=== PATIENT | female | born 1950 | race American Indian/Alaskan Native ===

== ENCOUNTER 2017-07-11 07:55 | Day surgery (SDC) | payer MEDICARE, MEDICAID ==
[2017-07-11] MEDS ORDERED: Dexamethasone 4 MG/ML SDV IV ONE (07:56)
[2017-07-11] MEDS ORDERED: Sodium Chloride 0.9% 10 ML Syringe IV ONE (07:56)
[2017-07-11] MEDS ORDERED: Midazolam 1 MG/ML 2 ML SDV IV ONE (07:56)
[2017-07-11] MEDS ORDERED: Cataract Ophth Solution EYELF ONE (08:00)
[2017-07-11] MEDS ORDERED: Phenylephrine 10% Ophth Soln 5 ML Bot EYELF PRN (08:00)
[2017-07-11] MEDS ORDERED: Ondansetron 4 MG/2 ML SDV IVPUSH PRN (08:00)
[2017-07-11] MEDS ORDERED: Povidone-Iodine 5% Sterile Ophth Soln 30 ML Bottle EYELF ONE ×2 (08:00→09:08)
[2017-07-11] MEDS ORDERED: Proparacaine 0.5% Ophth Soln 15 ML Bottle EYELF ONE (08:00)
[2017-07-11] MEDS ORDERED: Acetaminophen 325 MG Tab PO PRN (08:00)
[2017-07-11] MEDS ORDERED: Sodium Chloride 0.9% 10 ML Syringe FLUSH PRN (08:00)
[2017-07-11] MEDS ORDERED: Moxifloxacin 0.5% Ophth Soln 3 ML Bottle EYELF ONE (08:00)
[2017-07-11] MEDS ORDERED: Phenylephrine 10% Ophth Soln 5 ML Bot EYELF ONE (08:00)
[2017-07-11] MEDS ORDERED: Timolol Maleate 0.5% Ophth Soln 5 ML Bottle EYELF ONE (08:00)
[2017-07-11] MEDS ORDERED: Tetracaine HCl/PF 0.5% 4 ML Bottle EYELF ONE (09:08)
[2017-07-11] MEDS ORDERED: Apraclonidine 0.5% Ophth Soln 5 ML Bot EYELF ONE (09:09)
[2017-07-11] MEDS ORDERED: Lidocaine 1% 30 ML SDV ONE (09:09)
[2017-07-11] MEDS ORDERED: Dexamethasone/Neomycin/Polymyxin B Ophth Oint 3.5 GM Tube EYELF ONE (09:09)
[2017-07-11] MEDS ORDERED: Chondroitin Sulfate/Hyaluronate Sodium Ophth Inj 0.75 ML Syringe EYELF ONE (09:10)
[2017-07-11] MEDS ORDERED: Balanced Salt Solution Ophth Irrig 500 ML Bottle IOCULAR ONE (09:10)
[2017-07-11] MEDS ORDERED: Vancomycin 500 MG SDV EYELF ONE (09:10)
--- NOTE | 2017-07-11 10:50 | OR ---
DATE: 07/11/2017 PREOPERATIVE DIAGNOSIS: Visually significant mixed cataract, left eye. POSTOPERATIVE DIAGNOSIS: Visually significant mixed cataract, left eye. PROCEDURE: Extracapsular cataract extraction with intraocular lens implant, left eye. ANESTHESIA: Topical/local MAC. COMPLICATIONS: None. INDICATION: The patient was seen in the clinic with complaints of blurred vision. Examination revealed visually significant mixed nuclear and cortical cataract. She is unhappy with her vision. She has requested cataract surgery. I explained options, offered cataract surgery; and I explained risks including but not limited to infection, retinal detachment, loss of vision, and need for additional surgery amongst others. We discussed implant options. She has requested a mono focal implant. She understands that she may require glasses following surgery. OPERATIVE DESCRIPTION: After informed consent was obtained and the risks, benefits, and alternatives were explained, the patient was brought to the operative suite and topical anesthesia was administered. The patient was then prepped and draped in the sterile fashion, and attention was placed on the left eye. A sterile lid speculum was placed into the left eye to allow operative exposure. A full-thickness paracentesis was made in the temporal portion of the operative eye. Preservative-free lidocaine 0.1 mL was injected into the anterior chamber followed by viscoelastic. A full-thickness corneal incision was then made into the anterior chamber. A bent needle cystotome was used to create a small kira in the anterior capsule. The capsulorrhexis forceps was then used to create a 360-degree curvilinear capsulorrhexis. The nucleus was then removed using a phacoemulsification handpiece, and the remaining cortical material was then removed with irrigation and aspiration handpiece. Following removal of the cortical material, the capsular bag was then inspected and noted to be free of any holes or tears. Viscoelastic was then injected into the capsular bag, and the intraocular lens was inserted into the capsular bag. The viscoelastic material was then removed from both the anterior and posterior chambers and from behind the IOL. The lens and capsular bag were then reinspected. The IOL was well centered and the capsular bag intact. The wound and paracentesis sites were inspected and hydrated with balanced saline solution. Both were found to be self-sealing. The intraocular pressure was assessed digitally and found to be within normal range. A good red reflex was noted at the completion of the procedure. No complications occurred during the operation. At the completion of the procedure, Sarah Crystaln, and Iopidine drops were placed into the operative eye. A sterile eye shield was placed over the operative eye, and the patient was transported to the postoperative recovery area having tolerated the procedure well. Postoperative instructions were given along with a postoperative appointment. The patient was advised to call with any questions or concerns. [facility] /[id number]
== END 2017-07-11 10:08 | disposition home or self-care (01) ==
LOC: DL.SDS 07:55
PROVIDERS: ATTEND Ophthalmology
DX: H25.13 Age-related nuclear cataract, bilateral (principal); H52.4 Presbyopia; H52.223 Regular astigmatism, bilateral; F17.210 Nicotine dependence, cigarettes, uncomplicated; I10 Essential (primary) hypertension; E78.5 Hyperlipidemia, unspecified; E55.9 Vitamin D deficiency, unspecified; J30.2 Other seasonal allergic rhinitis; M17.0 Bilateral primary osteoarthritis of knee; G25.81 Restless legs syndrome; Z79.899 Other long term (current) drug therapy; Z79.82 Long term (current) use of aspirin; Z79.51 Long term (current) use of inhaled steroids; Z88.8 Allergy status to other drugs, medicaments and biological substances
CPT/HCPCS: 00140; 00142; A9270-GY; C1780; J1100; J2250; J3370; J7050

== ENCOUNTER 2017-07-18 08:12 | Day surgery (SDC) | payer MEDICARE, MEDICAID ==
[2017-07-18] MEDS ORDERED: Dexamethasone 4 MG/ML SDV IV ONE (08:13)
[2017-07-18] MEDS ORDERED: Midazolam 1 MG/ML 2 ML SDV IV ONE (08:13)
[2017-07-18] MEDS ORDERED: Sodium Chloride 0.9% 10 ML Syringe IV ONE (08:13)
[2017-07-18] MEDS ORDERED: Dilation Soln 1 EA EACH EYERT ONE (08:30)
[2017-07-18] MEDS ORDERED: Acetaminophen/Codeine 300-30 MG Tab PO PRN (08:30)
[2017-07-18] MEDS ORDERED: Phenylephrine 10% Ophth Soln 5 ML Bot EYERT ONE (08:30)
[2017-07-18] MEDS ORDERED: Ondansetron 4 MG/2 ML SDV IVPUSH PRN (08:30)
[2017-07-18] MEDS ORDERED: Sodium Chloride 0.9% 10 ML Syringe FLUSH PRN (08:30)
[2017-07-18] MEDS ORDERED: Moxifloxacin 0.5% Ophth Soln 3 ML Bottle EYERT ONE (08:30)
[2017-07-18] MEDS ORDERED: Timolol Maleate 0.5% Ophth Soln 5 ML Bottle EYERT ONE (08:30)
[2017-07-18] MEDS ORDERED: Proparacaine 0.5% Ophth Soln 15 ML Bottle EYERT ONE (08:30)
[2017-07-18] MEDS ORDERED: Povidone-Iodine 5% Sterile Ophth Soln 30 ML Bottle EYERT ONE ×2 (08:30→10:14)
[2017-07-18] MEDS ORDERED: Acetaminophen 325 MG Tab PO PRN (08:30)
[2017-07-18] MEDS ORDERED: Tetracaine HCl/PF 0.5% 4 ML Bottle EYERT ONE (10:13)
[2017-07-18] MEDS ORDERED: Lidocaine 1% 30 ML SDV INJECT ONE (10:18)
[2017-07-18] MEDS ORDERED: Vancomycin 500 MG SDV EYERT ONE (10:22)
[2017-07-18] MEDS ORDERED: Balanced Salt Solution Ophth Irrig 500 ML Bottle IOCULAR ONE (10:24)
[2017-07-18] MEDS ORDERED: Chondroitin Sulfate/Hyaluronate Sodium Ophth Inj 0.75 ML Syringe EYERT ONE (10:26)
[2017-07-18] MEDS ORDERED: Dexamethasone 4 MG/ML SDV IOCULAR ONE (10:27)
[2017-07-18] MEDS ORDERED: Dexamethasone/Neomycin/Polymyxin B Ophth Oint 3.5 GM Tube EYERT ONE (10:30)
[2017-07-18] MEDS ORDERED: Apraclonidine 0.5% Ophth Soln 5 ML Bot EYERT ONE (10:30)
--- NOTE | 2017-07-18 10:54 | OR ---
DATE: 07/18/2017 PREOPERATIVE DIAGNOSIS: Visually significant mixed cataract, right eye. POSTOPERATIVE DIAGNOSIS: Visually significant mixed cataract, right eye. PROCEDURE: Extracapsular cataract extraction with intraocular lens implant, right eye. ANESTHESIA: Topical/local MAC. COMPLICATIONS: None. INDICATION: The patient was seen in the clinic with complaints of blurred vision. Clinical examination revealed visually significant cataract. I explained options, I offered cataract surgery, and I explained risks. She is symptomatic and requested surgery to improve vision and function. We discussed implant options, and she has requested a monofocal implant. She voiced an understanding with risks including the potential for infection, retinal detachment, and loss of vision amongst others. OPERATIVE DESCRIPTION: After informed consent was obtained and the risks, benefits, and alternatives were explained, the patient was brought to the operative suite and topical anesthesia was administered. The patient was then prepped and draped in the sterile fashion, and attention was placed on the right eye. A sterile lid speculum was placed into the right eye to allow operative exposure. A full-thickness paracentesis was made in the temporal portion of the operative eye. Preservative-free lidocaine 0.1 mL was injected into the anterior chamber followed by viscoelastic. A full-thickness corneal incision was then made into the anterior chamber. A bent needle cystotome was used to create a small kira in the anterior capsule. The capsulorrhexis forceps was then used to create a 360-degree curvilinear capsulorrhexis. The nucleus was then removed using a phacoemulsification handpiece, and the remaining cortical material was then removed with irrigation and aspiration handpiece. Following removal of the cortical material, the capsular bag was then inspected and noted to be free of any holes or tears. Viscoelastic was then injected into the capsular bag, and the intraocular lens was inserted into the capsular bag. The viscoelastic material was then removed from both the anterior and posterior chambers and from behind the IOL. The lens and capsular bag were then reinspected. The IOL was well centered and the capsular bag intact. The wound and paracentesis sites were inspected and hydrated with balanced saline solution. Both were found to be self-sealing. The intraocular pressure was assessed digitally and found to be within normal range. A good red reflex was noted at the completion of the procedure. No complications occurred during the operation. At the completion of the procedure, Maxitrol, Voltaren, and Iopidine drops were placed into the operative eye. A sterile eye shield was placed over the operative eye, and the patient was transported to the postoperative recovery area having tolerated the procedure well. Postoperative instructions were given along with a postoperative appointment. The patient was advised to call with any questions or concerns. [facility] /[id number]
== END 2017-07-18 11:25 | disposition home or self-care (01) ==
LOC: DL.SDS 08:12
PROVIDERS: ATTEND Ophthalmology
DX: H25.811 Combined forms of age-related cataract, right eye (principal); I10 Essential (primary) hypertension; H25.11 Age-related nuclear cataract, right eye; E78.5 Hyperlipidemia, unspecified; F17.210 Nicotine dependence, cigarettes, uncomplicated; E55.9 Vitamin D deficiency, unspecified; Z79.82 Long term (current) use of aspirin; Z79.899 Other long term (current) drug therapy; Z88.8 Allergy status to other drugs, medicaments and biological substances
CPT/HCPCS: 00142; 66984; A9270; C1780; J1100; J2250; J3370; J7050

== ENCOUNTER 2021-06-15 08:28 | Emergency (ER) | payer MEDICARE, MEDICAID ==
[2021-06-15] MEDS ORDERED: Etomidate 2 MG/ML 20 ML SDV IVPUSH ONE (08:29)
[2021-06-15] MEDS ORDERED: Succinylcholine 200 MG/10 ML MDV IV ONE (08:29)
[2021-06-15] MEDS ORDERED: Propofol 1,000 MG/100 ML SDV IV ONE (08:29)
[2021-06-15] MEDS ORDERED: fentaNYL 100 MCG/2 ML SDV IV ONE (08:29)
[2021-06-15] MEDS ORDERED: Rocuronium 100 MG/10 ML MDV IV ONE (08:29)
[2021-06-15] MEDS ORDERED: Midazolam 1 MG/ML 2 ML SDV IV ONE (08:29)
[2021-06-15] MEDS ORDERED: Labetalol 20 MG/4 ML Syringe IVPUSH ONE (09:08)
[2021-06-15] MEDS ORDERED: Midazolam 1 MG/ML 2 ML SDV ONE (09:33)
[2021-06-15] MEDS ORDERED: fentaNYL 100 MCG/2 ML SDV ONE (09:34)
[2021-06-15 10:00] LABS: PTT,PARTIAL THROMBOPLSTIN TIME 22.1 SEC (22.0-34.0)
[2021-06-15 10:03] LABS: ANION GAP 23.8 mEq/L (7-13); CHLORIDE,CL 100 mmol/L (98-107); SODIUM,NA 140 mmol/L (136-145)
== END 2021-06-15 10:16 ==
LOC: DL.ED 08:28
DX: S06.2X9A Diffuse traumatic brain injury with loss of consciousness of unspecified duration, initial encounter (principal); I48.91 Unspecified atrial fibrillation; D68.9 Coagulation defect, unspecified; E78.00 Pure hypercholesterolemia, unspecified; I10 Essential (primary) hypertension; M19.90 Unspecified osteoarthritis, unspecified site; E66.9 Obesity, unspecified; Z88.0 Allergy status to penicillin; Z88.8 Allergy status to other drugs, medicaments and biological substances; Z68.28 Body mass index [BMI] 28.0-28.9, adult; Z79.82 Long term (current) use of aspirin; Z79.01 Long term (current) use of anticoagulants; Z79.899 Other long term (current) drug therapy; Z20.822 Contact with and (suspected) exposure to COVID-19; W19.XXXA Unspecified fall, initial encounter
CPT/HCPCS: 31500; 36415; 70450; 71045; 72125; 80053; 80307; 82009; 83605; 83735; 83880; 84443; 84484; 85025; 85610; 85730; 86140; 96374; 96375; 99285-25; J0330; J2250; J2704; J3010; J3490; U0002

== ENCOUNTER 2021-06-27 13:06 | Inpatient (IN) | payer MEDICARE, MEDICAID ==
[2021-06-27] MEDS ORDERED: Acetaminophen 325 MG Tab PO PRN (14:43)
[2021-06-27] MEDS ORDERED: Acetaminophen/HYDROcodone 325-5 MG Tab PO PRN (14:43)
[2021-06-27] MEDS ORDERED: Polyethylene Glycol 3350 Powder 17 GM Packet PO PRN (14:45)
[2021-06-27] MEDS ORDERED: Ondansetron 4 MG/2 ML SDV IVPUSH PRN (14:45)
[2021-06-27] MEDS ORDERED: Ondansetron 4 MG Tab.DIS PO PRN (14:45)
[2021-06-27] MEDS ORDERED: Magnesium Hydroxide 400 MG/5 ML Susp 30 ML Cup PO PRN (14:45)
[2021-06-27] MEDS ORDERED: Bisacodyl 5 MG Tab PO PRN (14:45)
[2021-06-27] MEDS ORDERED: Albuterol/Ipratropium 3.0-0.5 MG/3 ML Neb Soln NEB PRN (14:45)
[2021-06-27] MEDS ORDERED: Docusate Sodium 100 MG Cap PO PRN (14:45)
[2021-06-27] MEDS ORDERED: 50% Dextrose in Water 50 ML Syringe IVPUSH PRN (14:52)
[2021-06-27] MEDS ORDERED: Glucagon,Human Recombinant 1 MG Vial IM PRN (14:52)
[2021-06-27] MEDS ORDERED: Albuterol 6.7 GM Inhaler INH PRN (14:53)
[2021-06-27] MEDS ORDERED: Baclofen 10 MG Tab PO PRN (14:53)
[2021-06-27] MEDS ORDERED: traMADol 50 MG Tab PO PRN (14:56)
[2021-06-27] MEDS ORDERED: NICOTINE POLACRILEX 2 MG BC PRN (14:56)
[2021-06-27] MEDS ORDERED: Nicotine 14 MG/24 Hr Patch TRDERM SCH (15:00)
[2021-06-27] MEDS ORDERED: Nicotine 21 MG/24 Hr Patch TRDERM ONE (15:01)
[2021-06-27] MEDS: Insulin Lispro 100 Units/ML 3 ML Vial SUBCUT SCH (17:13)
[2021-06-27] MEDS: LORazepam 0.5 MG Tab PO SCH (20:38)
[2021-06-27] MEDS: Melatonin 3 MG Tab PO SCH (20:38)
[2021-06-27] MEDS: Apixaban 5 MG Tab PO SCH (20:38)
[2021-06-27] MEDS: rOPINIRole 2 MG Tab PO SCH (20:38)
[2021-06-27] MEDS: Nicotine 21 MG/24 Hr Patch TRDERM SCH (20:38)
[2021-06-27] MEDS: Gabapentin 100 MG Cap PO SCH (20:38)
[2021-06-27] MEDS: atorvaSTATin 20 MG Tab PO SCH (20:38)
[2021-06-27] MEDS ORDERED: Calcium Carbonate 500 MG Tab.Chew PO PRN (21:55)
[2021-06-28 06:47] LABS: CHLORIDE,CL 104 mmol/L (98-107); SODIUM,NA 138 mmol/L (136-145)
[2021-06-28] MEDS: Oxybutynin 5 MG Tab.ER PO SCH (08:37)
[2021-06-28] MEDS: DULoxetine 30 MG Cap PO SCH (08:38)
[2021-06-28] MEDS: Gabapentin 100 MG Cap PO SCH ×2 (08:38→21:02)
[2021-06-28] MEDS: LORazepam 0.5 MG Tab PO SCH ×2 (08:39→21:01)
[2021-06-28] MEDS: Aspirin 81 MG Tab.EC PO SCH (08:39)
[2021-06-28] MEDS: Diltiazem 240 MG Cap.ER PO SCH (08:39)
[2021-06-28] MEDS: Losartan 50 MG Tab PO SCH (08:39)
[2021-06-28] MEDS: amLODIPine 5 MG Tab PO SCH (08:39)
[2021-06-28] MEDS: Apixaban 5 MG Tab PO SCH ×2 (08:39→21:01)
[2021-06-28] MEDS: Insulin Lispro 100 Units/ML 3 ML Vial SUBCUT SCH ×3 (08:42→17:20)
[2021-06-28] MEDS: Insulin Glarg,Human.Rec.Analog 100 Unit/ML SUBCUT SCH (08:45)
[2021-06-28] MEDS ORDERED: Check Patch TRDERM SCH (09:00)
[2021-06-28] MEDS: rOPINIRole 2 MG Tab PO SCH (21:01)
[2021-06-28] MEDS: Melatonin 3 MG Tab PO SCH (21:02)
[2021-06-28] MEDS: atorvaSTATin 20 MG Tab PO SCH (21:02)
[2021-06-28] MEDS: Nicotine 21 MG/24 Hr Patch TRDERM SCH (21:03)
[2021-06-29] MEDS: amLODIPine 5 MG Tab PO SCH (09:05)
[2021-06-29] MEDS: Oxybutynin 5 MG Tab.ER PO SCH (09:05)
[2021-06-29] MEDS: Diltiazem 240 MG Cap.ER PO SCH (09:06)
[2021-06-29] MEDS: Apixaban 5 MG Tab PO SCH ×2 (09:06→20:28)
[2021-06-29] MEDS: LORazepam 0.5 MG Tab PO SCH ×2 (09:06→20:29)
[2021-06-29] MEDS: Losartan 50 MG Tab PO SCH (09:06)
[2021-06-29] MEDS: Gabapentin 100 MG Cap PO SCH ×2 (09:07→20:29)
[2021-06-29] MEDS: Aspirin 81 MG Tab.EC PO SCH (09:07)
[2021-06-29] MEDS: DULoxetine 30 MG Cap PO SCH (09:07)
[2021-06-29] MEDS: Insulin Lispro 100 Units/ML 3 ML Vial SUBCUT SCH ×3 (09:10→17:19)
[2021-06-29] MEDS: Insulin Glarg,Human.Rec.Analog 100 Unit/ML SUBCUT SCH (09:11)
[2021-06-29] MEDS: Check NICOTINE Patch TRDERM SCH (09:13)
[2021-06-29] MEDS: ARIPIPRAZOLE 5 MG PO SCH (14:30)
[2021-06-29] MEDS: atorvaSTATin 20 MG Tab PO SCH (20:24)
[2021-06-29] MEDS: Melatonin 3 MG Tab PO SCH (20:28)
[2021-06-29] MEDS: rOPINIRole 2 MG Tab PO SCH (20:29)
[2021-06-29] MEDS: Formoterol/Mometasone 100-5 MCG 8.8 GM Inhaler IH SCH (20:32)
[2021-06-29] MEDS: Nicotine 21 MG/24 Hr Patch TRDERM SCH (20:35)
[2021-06-29] MEDS ORDERED: MIRABEGRON 25 MG PO SCH (21:00)
[2021-06-30] MEDS: Apixaban 5 MG Tab PO SCH (09:32)
[2021-06-30] MEDS: Aspirin 81 MG Tab.EC PO SCH (09:32)
[2021-06-30] MEDS: Diltiazem 240 MG Cap.ER PO SCH (09:32)
[2021-06-30] MEDS: amLODIPine 5 MG Tab PO SCH (09:32)
[2021-06-30] MEDS: Losartan 50 MG Tab PO SCH (09:33)
[2021-06-30] MEDS: DULoxetine 30 MG Cap PO SCH (09:33)
[2021-06-30] MEDS: Oxybutynin 5 MG Tab.ER PO SCH (09:33)
[2021-06-30] MEDS: Gabapentin 100 MG Cap PO SCH (09:33)
[2021-06-30] MEDS: LORazepam 0.5 MG Tab PO SCH (09:34)
[2021-06-30] MEDS: ARIPIPRAZOLE 5 MG PO SCH (09:34)
[2021-06-30] MEDS: Formoterol/Mometasone 100-5 MCG 8.8 GM Inhaler IH SCH (09:35)
[2021-06-30] MEDS: Insulin Lispro 100 Units/ML 3 ML Vial SUBCUT SCH ×2 (09:38→12:37)
[2021-06-30] MEDS: Insulin Glarg,Human.Rec.Analog 100 Unit/ML SUBCUT SCH (09:39)
[2021-06-30] MEDS: Check NICOTINE Patch TRDERM SCH (09:43)
== END 2021-06-30 14:20 | disposition home or self-care (01) | DRG 57 ==
LOC: DL.MS 14:11
PROVIDERS: ADMIT Internal Medicine; ATTEND Internal Medicine
DX: I69.30 Unspecified sequelae of cerebral infarction (principal); D84.9 Immunodeficiency, unspecified; I48.0 Paroxysmal atrial fibrillation; I10 Essential (primary) hypertension; E11.9 Type 2 diabetes mellitus without complications; E78.5 Hyperlipidemia, unspecified; F17.210 Nicotine dependence, cigarettes, uncomplicated; E66.9 Obesity, unspecified; Z68.30 Body mass index [BMI] 30.0-30.9, adult; I07.1 Rheumatic tricuspid insufficiency; I35.8 Other nonrheumatic aortic valve disorders; N32.81 Overactive bladder; M19.90 Unspecified osteoarthritis, unspecified site; E56.9 Vitamin deficiency, unspecified; E78.00 Pure hypercholesterolemia, unspecified; Z98.49 Cataract extraction status, unspecified eye; Z90.89 Acquired absence of other organs; Z20.822 Contact with and (suspected) exposure to COVID-19; Z79.82 Long term (current) use of aspirin; Z79.01 Long term (current) use of anticoagulants; Z79.4 Long term (current) use of insulin; Z79.899 Other long term (current) drug therapy; Z88.1 Allergy status to other antibiotic agents; Z88.8 Allergy status to other drugs, medicaments and biological substances
CPT/HCPCS: 36415; 80053; 80061; 82947; 83735; 85025; 97110-GO; 97116-GP; 97161-GP; 97165-GO; 97530-GO; 97535-GO; A9270-GY; J1815-GY; U0002

== ENCOUNTER 2021-09-01 16:25 | Emergency (ER) | payer MEDICARE, MEDICAID ==
[2021-09-01] MEDS ORDERED: Sodium Chloride 0.9% 10 ML Syringe FLUSH PRN (16:37)
[2021-09-01 17:20] LABS: ANION GAP 12.3 mEq/L (7-13)
== END 2021-09-01 18:00 | disposition home or self-care (01) ==
LOC: DL.ED 16:25
DX: K92.2 Gastrointestinal hemorrhage, unspecified (principal); R60.0 Localized edema; E78.00 Pure hypercholesterolemia, unspecified; E10.9 Type 1 diabetes mellitus without complications; I10 Essential (primary) hypertension; M19.90 Unspecified osteoarthritis, unspecified site; F17.210 Nicotine dependence, cigarettes, uncomplicated; Z88.0 Allergy status to penicillin; Z88.8 Allergy status to other drugs, medicaments and biological substances; Z86.73 Personal history of transient ischemic attack (TIA), and cerebral infarction without residual deficits; Z79.82 Long term (current) use of aspirin; Z79.01 Long term (current) use of anticoagulants; Z79.899 Other long term (current) drug therapy
CPT/HCPCS: 36415; 80053; 83880; 84443; 93005; 99285; J3490

== ENCOUNTER 2021-10-17 06:02 | Day surgery (SDC) | payer MEDICARE, MEDICAID ==
[2021-10-17] MEDS ORDERED: Midazolam 1 MG/ML 2 ML SDV IV ONE (06:03)
[2021-10-17] MEDS ORDERED: fentaNYL 100 MCG/2 ML SDV IV ONE (06:03)
[2021-10-17] MEDS ORDERED: Dextrose 5%-0.45% NaCl 1,000 ML IV SCH (06:30)
== END 2021-10-17 09:15 | disposition home or self-care (01) ==
LOC: DL.ENDO 06:02
PROVIDERS: ATTEND Internal Medicine Gastroenterology
DX: K29.50 Unspecified chronic gastritis without bleeding (principal); B96.81 Helicobacter pylori [H. pylori] as the cause of diseases classified elsewhere; I10 Essential (primary) hypertension; E11.9 Type 2 diabetes mellitus without complications; E78.00 Pure hypercholesterolemia, unspecified; D50.0 Iron deficiency anemia secondary to blood loss (chronic); E66.09 Other obesity due to excess calories; F17.210 Nicotine dependence, cigarettes, uncomplicated; J44.9 Chronic obstructive pulmonary disease, unspecified; I48.91 Unspecified atrial fibrillation; Z98.890 Other specified postprocedural states; Z88.0 Allergy status to penicillin; Z88.8 Allergy status to other drugs, medicaments and biological substances; Z86.73 Personal history of transient ischemic attack (TIA), and cerebral infarction without residual deficits; Z79.51 Long term (current) use of inhaled steroids; Z79.02 Long term (current) use of antithrombotics/antiplatelets; Z79.891 Long term (current) use of opiate analgesic; Z79.899 Other long term (current) drug therapy; Z79.4 Long term (current) use of insulin; Z88.1 Allergy status to other antibiotic agents
CPT/HCPCS: 00731; 43239; 87077; 88305; 88342; J2250; J3010; J7042

== ENCOUNTER 2021-10-27 06:04 | Day surgery (SDC) | payer MEDICARE, MEDICAID ==
[~2021-10-27 06:04] MED LIST: Dextrose 5%-0.45% NaCl 1,000 ML IV SCH; Sodium Chloride 0.9% 10 ML Syringe FLUSH PRN; Sodium Chloride 0.9% 10 ML Syringe FLUSH SCH
[2021-10-27] MEDS ORDERED: fentaNYL 100 MCG/2 ML SDV IV ONE ×3 (06:05→07:10)
[2021-10-27] MEDS ORDERED: Midazolam 1 MG/ML 2 ML SDV IV ONE ×7 (06:05→07:24)
[2021-10-27] MEDS ORDERED: fentaNYL 100 MCG/2 ML SDV ONE (06:15)
[2021-10-27] MEDS ORDERED: Midazolam 1 MG/ML 2 ML SDV ONE (06:15)
== END 2021-10-27 09:25 | disposition home or self-care (01) ==
LOC: DL.ENDO 06:04
PROVIDERS: ATTEND Internal Medicine Gastroenterology
DX: D12.3 Benign neoplasm of transverse colon (principal); D50.9 Iron deficiency anemia, unspecified; K57.30 Diverticulosis of large intestine without perforation or abscess without bleeding; F17.210 Nicotine dependence, cigarettes, uncomplicated; E66.09 Other obesity due to excess calories; E11.9 Type 2 diabetes mellitus without complications; I10 Essential (primary) hypertension; G25.81 Restless legs syndrome; N32.81 Overactive bladder; E78.00 Pure hypercholesterolemia, unspecified; J44.9 Chronic obstructive pulmonary disease, unspecified; I48.91 Unspecified atrial fibrillation; Z86.73 Personal history of transient ischemic attack (TIA), and cerebral infarction without residual deficits; Z88.8 Allergy status to other drugs, medicaments and biological substances; Z68.32 Body mass index [BMI] 32.0-32.9, adult
CPT/HCPCS: 45385; J2250; J3010; J7042; 88305

== ENCOUNTER 2023-05-28 12:49 | Inpatient (IN) | payer MEDICARE, MEDICAID ==
[2023-05-28] MEDS: Iopamidol 755 Mg/ML 100 ML Bottle IVPUSH ONE (13:10)
[2023-05-28 13:24] LABS: BASOPHILS PERCENT AUTO 0.1 % (0.0-1.0); HEMATOCRIT 38.2 % (37.0-47.0); HEMOGLOBIN 12.2 g/dL (12.0-16.0); LYMPHOCYTES PERCENT AUTO 5.5 % (20.5-50.1); MEAN CORPUSCULAR HEMOGLOBIN 31.1 pg (27.0-34.0); MEAN CORPUSCULAR HGB CONC 31.9 g/dL (33.0-35.0); MEAN CORPUSCULAR VOLUME 97.4 fL (80-100); MONOCYTES PERCENT AUTO 7.4 % (2-8); PLATELET COUNT,PLT 311 10^3/uL (150-450); RED BLOOD CELL COUNT 3.92 10^6/uL (4.2-5.4); WHITE BLOOD CELL COUNT,WBC 23.3 10^3/uL (5.0-10.0)
[2023-05-28] MEDS: Sodium Chloride 0.9% 500 ML IV SCH (13:34)
[2023-05-28 13:42] LABS: INR 1.1 (0.9-1.2); PROTHROMBIN TIME 11.8 SEC (9.0-12.0); PTT,PARTIAL THROMBOPLSTIN TIME 29.5 SEC (22.0-34.0)
[2023-05-28 13:50] LABS: LACTIC ACID 2.1 mmol/L (0.4-2.0)
[2023-05-28] MEDS: Sodium Chloride 0.9% 10 ML Syringe FLUSH PRN (13:51)
[2023-05-28 13:52] LABS: ALBUMIN 2.8 g/dL (3.4-5.0); ANION GAP 15.6 mEq/L (7-13); BILIRUBIN TOTAL 0.8 mg/dL (0.2-1.0); BUN/CREATININE RATIO 17.8 (No establ ref range); CREATININE 2.19 mg/dL (0.55-1.02); EST CRCL DRUG DOSING (CG) 20.59 mL/min; POTASSIUM,K 4.6 mmol/L (3.5-5.1); PROTEIN TOTAL,TP 6.1 g/dL (6.4-8.2)
[2023-05-28 13:53] LABS: A/G RATIO 0.85
[2023-05-28] MEDS: Albuterol/Ipratropium 3.0-0.5 MG/3 ML Neb Soln NEB ONE (13:59)
[2023-05-28] MEDS: Sodium Chloride 0.9% 1,000 ML IV ONE ×2 (14:00→15:52)
[2023-05-28 14:03] LABS: BILIRUBIN,URINE NEGATIVE (NEGATIVE); COLOR,URINE YELLOW (YELLOW); GLUCOSE,URINE NEGATIVE (NEGATIVE); KETONES,URINE NEGATIVE (NEGATIVE); LEUKOCYTE ESTERASE,URINE NEGATIVE (NEGATIVE); NITRITE,URINE NEGATIVE (NEGATIVE); OCCULT BLOOD,URINE TRACE-INTACT (NEGATIVE); PH,URINE 6.5 (5.0-9.0); PROTEIN,URINE NEGATIVE (NEGATIVE); UROBILINOGEN,URINE 0.2 mg/dL (0.2-1.0)
[2023-05-28] MEDS: methylPREDNISolone Sodium Succinate 125 MG/2 ML SDV IVPUSH ONE (14:05)
[2023-05-28 14:17] LABS: APPEARANCE,URINE CLOUDY (CLEAR)
[2023-05-28 14:18] LABS: EPITHELIAL CELLS,URINE FEW /HPF (NOT SEEN); RBC,URINE 0-5 /HPF (0-5); WBC,URINE 0-5 /HPF (0-5/HPF)
[2023-05-28 14:19] LABS: BACTERIA,URINE FEW /HPF (0-FEW/HPF); CALCIUM OXALATE CRYSTALS,URINE MODERATE /HPF (NOT SEEN)
[2023-05-28 14:20] LABS: BASE EXCESS ARTERIAL -9 mmol/L ((-2)-(+3)); BICARBONATE,ARTERIAL 16.7 mmol/L (22-26); O2 DELIVERY DEVICE NASAL CANNULA; O2 SATURATION ARTERIAL 92 % (95-100); PCO2 ARTERIAL 36 mmHg (35-45); PH,ARTERIAL 7.29 (7.35-7.45); PO2 ARTERIAL 69 mmHg (70-100)
[2023-05-28 14:22] LABS: ALLEN TEST POSITIVE
[2023-05-28] MEDS: metroNIDAZOLE/Normal Saline 500 MG in Premix Bag 1 BAG IV ONE (14:26)
[2023-05-28] MEDS ORDERED: Sodium Chloride 0.9% 500 ML IV SCH (14:30)
[2023-05-28] MEDS: Cefepime 2 GM Vial IVPUSH ONE (14:41)
[2023-05-28] MEDS ORDERED: Albuterol/Ipratropium 3.0-0.5 MG/3 ML Neb Soln NEB PRN (14:57)
[2023-05-28] MEDS ORDERED: Bisacodyl 5 MG Tab PO PRN (14:57)
[2023-05-28] MEDS ORDERED: Magnesium Hydroxide 400 MG/5 ML Susp 30 ML Cup PO PRN (14:57)
[2023-05-28] MEDS ORDERED: Polyethylene Glycol 3350 Powder 17 GM Packet PO PRN (14:57)
[2023-05-28] MEDS ORDERED: Ondansetron 4 MG/2 ML SDV IVPUSH PRN (14:57)
[2023-05-28 15:13] LABS: CORONAVIRUS COVID-19 NAA NEGATIVE (NEGATIVE); INFLUENZA A NAA NEGATIVE (NEGATIVE); INFLUENZA B NAA NEGATIVE (NEGATIVE); RESPIRATORY SYNCYTIAL VIR NAA NEGATIVE (NEGATIVE)
[2023-05-28] MEDS ORDERED: hydrALAZINE 20 MG/ML SDV IVPUSH PRN (15:13)
[2023-05-28] MEDS ORDERED: guaiFENesin/Dextromethorphan 100-10 MG/5 ML Soln 5 ML Cup PO PRN (15:16)
[2023-05-28] MEDS ORDERED: traMADol 50 MG Tab PO PRN (15:19)
[2023-05-28] MEDS ORDERED: Glucagon,Human Recombinant 1 MG Vial IM PRN (15:25)
[2023-05-28] MEDS ORDERED: 50% Dextrose in Water 50 ML Syringe IVPUSH PRN (15:25)
[2023-05-28 15:42] LABS: HEMOGLOBIN A1C 7.3 % (<5.7)
[2023-05-28] MEDS: Midodrine 5 MG Tab PO STA (17:42)
[2023-05-28] MEDS: Pantoprazole 40 MG Vial IVPUSH ONE (17:43)
[2023-05-28] MEDS: Hydrocortisone Sodium Succinate 100 MG/2 ML SDV IVPUSH SCH (17:43)
[2023-05-28] MEDS: Pantoprazole 40 MG in Sodium Chloride 0.9% 100 ML IV ONE (17:44)
[2023-05-28] MEDS: Azithromycin 500 MG in Sodium Chloride 0.9% 250 ML IV ONE (17:44)
[2023-05-28] MEDS: Insulin Lispro 100 Units/ML 3 ML Vial SUBCUT SCH (20:05)
[2023-05-28] MEDS: metroNIDAZOLE/Normal Saline 500 MG in Premix Bag 1 BAG IV SCH (20:07)
[2023-05-28] MEDS: Midodrine 5 MG Tab PO SCH (23:06)
[2023-05-28] MEDS: Saccharomyces Boulardii (Probiotic) 250 MG Cap PO SCH (23:06)
[2023-05-28] MEDS: guaiFENesin 600 MG Tab.ER PO SCH (23:06)
[2023-05-29] MEDS: Ampicillin/Sulbactam Na 1.5 GM in Sodium Chloride 0.9% 100 ML IV SCH (00:27)
[2023-05-29] MEDS: Dextrose 5%-0.9% NaCl 1,000 ML IV SCH (01:43)
[2023-05-29] MEDS: Pantoprazole 40 MG Tab.CR PO SCH (05:09)
[2023-05-29] MEDS: Acetaminophen 325 MG Tab PO PRN (05:12)
[2023-05-29 06:40] LABS: HEMATOCRIT 34.8 % (37.0-47.0); HEMOGLOBIN 11.2 g/dL (12.0-16.0); MEAN CORPUSCULAR HGB CONC 32.2 g/dL (33.0-35.0); MEAN CORPUSCULAR VOLUME 96.4 fL (80-100); PLATELET COUNT,PLT 291 10^3/uL (150-450); RED BLOOD CELL COUNT 3.61 10^6/uL (4.2-5.4); WHITE BLOOD CELL COUNT,WBC 23.3 10^3/uL (5.0-10.0)
[2023-05-29 06:42] LABS: ALBUMIN 2.6 g/dL (3.4-5.0); ANION GAP 14.4 mEq/L (7-13); BILIRUBIN TOTAL 0.5 mg/dL (0.2-1.0); BUN/CREATININE RATIO 24.8 (No establ ref range); C-REACTIVE PROTEIN 16.12 ng/dL (<=0.50); CALCIUM 8.3 mg/dL (8.5-10.1); CREATININE 1.17 mg/dL (0.55-1.02); EST CRCL DRUG DOSING (CG) 40.87 mL/min; MAGNESIUM 1.8 mg/dL (1.8-2.4); POTASSIUM,K 4.4 mmol/L (3.5-5.1); PROTEIN TOTAL,TP 5.9 g/dL (6.4-8.2)
[2023-05-29 06:49] LABS: A/G RATIO 0.79
[2023-05-29 07:12] LABS: BASOPHILS PERCENT AUTO 0.1 % (0.0-1.0); LYMPHOCYTES PERCENT AUTO 4.9 % (20.5-50.1); MONOCYTES PERCENT AUTO 3.3 % (2-8); NEUTROPHILS PERCENT AUTO 91.7 % (42.2-75.2)
[2023-05-29 07:21] LABS: BAND PERCENT MAN 5 %; LYMPHOCYTES PERCENT MAN 5 % (20-50); MONOCYTES PERCENT MAN 2 % (2-8); SEG NEUTROPHILS PERCENT MAN 88 % (42-75)
[2023-05-29] MEDS: Insulin Glarg,Human.Rec.Analog 100 Unit/ML 10 ML Vial SUBCUT SCH (08:34)
[2023-05-29] MEDS ORDERED: cefTRIAXone 2 GM Vial IVPUSH SCH (09:00)
[2023-05-29] MEDS ORDERED: Azithromycin 500 MG in Sodium Chloride 0.9% 250 ML IV SCH (09:00)
[2023-05-29] MEDS: Acetaminophen/HYDROcodone 325-5 MG Tab PO PRN (11:46)
[2023-05-29] MEDS: Aspirin 81 MG Tab.Chew PO ONE (11:47)
[2023-05-29] MEDS: HYDROmorphone 0.5 MG/0.5 ML Syringe IVPUSH PRN (13:25)
[2023-05-29] MEDS: Gabapentin 400 MG Cap PO SCH (14:02)
[2023-05-29] MEDS: DULoxetine 30 MG Cap PO SCH (20:50)
[2023-05-29] MEDS: Apixaban 5 MG Tab PO SCH (20:51)
[2023-05-29] MEDS: rOPINIRole 2 MG Tab PO SCH (20:51)
[2023-05-29] MEDS: atorvaSTATin 20 MG Tab PO SCH (20:52)
[2023-05-29] MEDS ORDERED: Non-Formulary Medication 1 Each (Atorvastatin [Lipitor] 40 MG Tablet) PO SCH (21:00)
[2023-05-30 06:49] LABS: BASOPHILS PERCENT AUTO 0.2 % (0.0-1.0); HEMATOCRIT 33.2 % (37.0-47.0); HEMOGLOBIN 10.6 g/dL (12.0-16.0); LYMPHOCYTES PERCENT AUTO 5.9 % (20.5-50.1); MEAN CORPUSCULAR HEMOGLOBIN 30.5 pg (27.0-34.0); MEAN CORPUSCULAR HGB CONC 31.9 g/dL (33.0-35.0); MEAN CORPUSCULAR VOLUME 95.7 fL (80-100); MONOCYTES PERCENT AUTO 5.9 % (2-8); PLATELET COUNT,PLT 295 10^3/uL (150-450); RED BLOOD CELL COUNT 3.47 10^6/uL (4.2-5.4); WHITE BLOOD CELL COUNT,WBC 25.6 10^3/uL (5.0-10.0)
[2023-05-30 06:56] LABS: ALBUMIN 2.5 g/dL (3.4-5.0); ANION GAP 10.8 mEq/L (7-13); BILIRUBIN TOTAL 0.4 mg/dL (0.2-1.0); BUN/CREATININE RATIO 26.9 (No establ ref range); C-REACTIVE PROTEIN 8.6 ng/dL (<=0.50); CALCIUM 8.2 mg/dL (8.5-10.1); CREATININE 1.04 mg/dL (0.55-1.02); EST CRCL DRUG DOSING (CG) 45.97 mL/min; MAGNESIUM 1.8 mg/dL (1.8-2.4); POTASSIUM,K 3.8 mmol/L (3.5-5.1); PROTEIN TOTAL,TP 5.8 g/dL (6.4-8.2)
[2023-05-30 06:57] LABS: A/G RATIO 0.76
[2023-05-30] MEDS: Losartan 50 MG Tab PO SCH (08:01)
[2023-05-30] MEDS: Diltiazem 120 MG Cap.CD PO SCH (08:01)
[2023-05-30] MEDS: Aspirin 81 MG Tab.Chew PO SCH (08:02)
[2023-05-30] MEDS: Acetaminophen/HYDROcodone 325-5 MG Tab PO PRN (11:35)
[2023-05-31 06:32] LABS: BASOPHILS PERCENT AUTO 0.2 % (0.0-1.0); EOSINOPHILS PERCENT AUTO 0.7 % (1.0-3.0); HEMATOCRIT 33.6 % (37.0-47.0); LYMPHOCYTES PERCENT AUTO 12.1 % (20.5-50.1); MEAN CORPUSCULAR HEMOGLOBIN 30.7 pg (27.0-34.0); MEAN CORPUSCULAR HGB CONC 32.7 g/dL (33.0-35.0); MEAN CORPUSCULAR VOLUME 93.9 fL (80-100); MONOCYTES PERCENT AUTO 6.3 % (2-8); NEUTROPHILS PERCENT AUTO 80.7 % (42.2-75.2); PLATELET COUNT,PLT 299 10^3/uL (150-450); RED BLOOD CELL COUNT 3.58 10^6/uL (4.2-5.4); WHITE BLOOD CELL COUNT,WBC 17.2 10^3/uL (5.0-10.0)
[2023-05-31 06:43] LABS: ALBUMIN 2.6 g/dL (3.4-5.0); ANION GAP 11.2 mEq/L (7-13); BILIRUBIN TOTAL 0.5 mg/dL (0.2-1.0); BUN/CREATININE RATIO 20.3 (No establ ref range); C-REACTIVE PROTEIN 4.66 ng/dL (<=0.50); CALCIUM 8.1 mg/dL (8.5-10.1); CREATININE 0.79 mg/dL (0.55-1.02); EST CRCL DRUG DOSING (CG) 60.52 mL/min; MAGNESIUM 1.5 mg/dL (1.8-2.4); POTASSIUM,K 3.2 mmol/L (3.5-5.1); PROTEIN TOTAL,TP 5.7 g/dL (6.4-8.2)
[2023-05-31 06:49] LABS: A/G RATIO 0.84
== END 2023-05-31 09:38 | disposition swing bed (61) | DRG 871 ==
LOC: DL.ED 12:49 → DL.MS 14:50
PROVIDERS: ADMIT Internal Medicine; ATTEND Internal Medicine
DX: A41.9 Sepsis, unspecified organism (principal); J18.9 Pneumonia, unspecified organism; J69.0 Pneumonitis due to inhalation of food and vomit; J96.01 Acute respiratory failure with hypoxia; D84.9 Immunodeficiency, unspecified; E87.20 Acidosis, unspecified; N17.9 Acute kidney failure, unspecified; E10.9 Type 1 diabetes mellitus without complications; J44.0 Chronic obstructive pulmonary disease with (acute) lower respiratory infection; F17.200 Nicotine dependence, unspecified, uncomplicated; J44.1 Chronic obstructive pulmonary disease with (acute) exacerbation; I10 Essential (primary) hypertension; E78.5 Hyperlipidemia, unspecified; I48.0 Paroxysmal atrial fibrillation; I35.1 Nonrheumatic aortic (valve) insufficiency; M19.90 Unspecified osteoarthritis, unspecified site; E86.0 Dehydration; E78.00 Pure hypercholesterolemia, unspecified; E66.9 Obesity, unspecified; I95.9 Hypotension, unspecified; R65.20 Severe sepsis without septic shock; E11.65 Type 2 diabetes mellitus with hyperglycemia; K21.9 Gastro-esophageal reflux disease without esophagitis; F41.9 Anxiety disorder, unspecified; G25.81 Restless legs syndrome; F32.A Depression, unspecified; F17.210 Nicotine dependence, cigarettes, uncomplicated; Z88.0 Allergy status to penicillin; Z88.8 Allergy status to other drugs, medicaments and biological substances; Z79.01 Long term (current) use of anticoagulants; Z86.73 Personal history of transient ischemic attack (TIA), and cerebral infarction without residual deficits; Z87.442 Personal history of urinary calculi; Z79.82 Long term (current) use of aspirin; Z79.899 Other long term (current) drug therapy; Z79.4 Long term (current) use of insulin; Z90.49 Acquired absence of other specified parts of digestive tract; Z98.49 Cataract extraction status, unspecified eye; Z68.35 Body mass index [BMI] 35.0-35.9, adult
CPT/HCPCS: 0241U; 36415; 36600; 70450; 70496; 70498; 70551; 71045; 76770; 80053; 80061; 80202; 81001; 82272; 82533; 82803; 82947; 83036; 83605; 83735; 84484; 85025; 85610; 85730; 86140; 87040; 93010; 96361; 96374; 96375; 97161; 97165; 97530; 99285; 99232; 99238; A9270-GY; C1758; C9113; J0295; J0456; J0692; J1170; J1720; J1815-GY; J1836; J2930; J3370; J3490; J7030; J7040; J7042; J7050; J7620-GY; Q9967

== ENCOUNTER 2023-05-31 08:31 | Inpatient (IN) | payer MEDICARE, MEDICAID ==
[2023-05-31] MEDS ORDERED: Albuterol/Ipratropium 3.0-0.5 MG/3 ML Neb Soln NEB PRN (09:41)
[2023-05-31] MEDS ORDERED: Magnesium Hydroxide 400 MG/5 ML Susp 30 ML Cup PO PRN (09:41)
[2023-05-31] MEDS ORDERED: traMADol 50 MG Tab PO PRN (09:41)
[2023-05-31] MEDS ORDERED: Glucagon,Human Recombinant 1 MG Vial IM PRN ×2 (09:41)
[2023-05-31] MEDS ORDERED: Sodium Chloride 0.9% 500 ML IV SCH (09:41)
[2023-05-31] MEDS ORDERED: Polyethylene Glycol 3350 Powder 17 GM Packet PO PRN (09:41)
[2023-05-31] MEDS ORDERED: Ondansetron 4 MG/2 ML SDV IVPUSH PRN (09:41)
[2023-05-31] MEDS ORDERED: guaiFENesin/Dextromethorphan 100-10 MG/5 ML Soln 5 ML Cup PO PRN (09:41)
[2023-05-31] MEDS ORDERED: Bisacodyl 5 MG Tab PO PRN (09:41)
[2023-05-31] MEDS ORDERED: Acetaminophen 325 MG Tab PO PRN (09:41)
[2023-05-31] MEDS ORDERED: 50% Dextrose in Water 50 ML Syringe IVPUSH PRN (09:41)
[2023-05-31] MEDS ORDERED: Sodium Chloride 0.9% 10 ML Syringe FLUSH PRN (09:41)
[2023-05-31] MEDS: Acetaminophen/HYDROcodone 325-5 MG Tab PO PRN (11:45)
[2023-05-31] MEDS: Ampicillin/Sulbactam Na 1.5 GM in Sodium Chloride 0.9% 100 ML IV SCH (11:46)
[2023-05-31] MEDS: Insulin Lispro 100 Units/ML 3 ML Vial SUBCUT SCH (12:01)
[2023-05-31] MEDS: Insulin Glarg,Human.Rec.Analog 100 Unit/ML 10 ML Vial SUBCUT SCH (12:03)
[2023-05-31] MEDS: Gabapentin 400 MG Cap PO SCH (13:46)
[2023-05-31] MEDS: Pantoprazole 40 MG Tab.CR PO SCH (17:02)
[2023-05-31] MEDS: Saccharomyces Boulardii (Probiotic) 250 MG Cap PO SCH (21:17)
[2023-05-31] MEDS: rOPINIRole 2 MG Tab PO SCH (21:19)
[2023-05-31] MEDS: atorvaSTATin 20 MG Tab PO SCH (21:19)
[2023-05-31] MEDS: guaiFENesin 600 MG Tab.ER PO SCH (21:19)
[2023-05-31] MEDS: Apixaban 5 MG Tab PO SCH (21:19)
[2023-05-31] MEDS: DULoxetine 30 MG Cap PO SCH (21:19)
[2023-05-31] MEDS: Sodium Chloride 0.9% 10 ML Syringe FLUSH SCH (21:32)
[2023-05-31] MEDS: Sodium Chloride 0.9% 10 ML Syringe FLUSH PRN (23:35)
[2023-05-31] MEDS: hydrALAZINE 20 MG/ML SDV IVPUSH PRN (23:50)
[2023-06-01 06:46] LABS: BASOPHILS PERCENT AUTO 0.1 % (0.0-1.0); EOSINOPHILS PERCENT AUTO 1.4 % (1.0-3.0); HEMATOCRIT 37.3 % (37.0-47.0); HEMOGLOBIN 12.4 g/dL (12.0-16.0); LYMPHOCYTES PERCENT AUTO 14.1 % (20.5-50.1); MEAN CORPUSCULAR HEMOGLOBIN 31.1 pg (27.0-34.0); MEAN CORPUSCULAR HGB CONC 33.2 g/dL (33.0-35.0); MEAN CORPUSCULAR VOLUME 93.5 fL (80-100); MONOCYTES PERCENT AUTO 9.2 % (2-8); NEUTROPHILS PERCENT AUTO 75.2 % (42.2-75.2); PLATELET COUNT,PLT 303 10^3/uL (150-450); RED BLOOD CELL COUNT 3.99 10^6/uL (4.2-5.4); WHITE BLOOD CELL COUNT,WBC 15.3 10^3/uL (5.0-10.0)
[2023-06-01 07:08] LABS: ALANINE AMINOTRANSFERASE,ALT 23 U/L (14-59); ALBUMIN 2.6 g/dL (3.4-5.0); ALKALINE PHOSPHATASE 72 U/L (46-116); ANION GAP 12.3 mEq/L (7-13); ASPARTATE AMNIOTRANSFERASE,AST 16 U/L (15-37); BILIRUBIN TOTAL 0.5 mg/dL (0.2-1.0); BLOOD UREA NITROGEN,BUN 12 mg/dL (7-18); BUN/CREATININE RATIO 16.2 (No establ ref range); C-REACTIVE PROTEIN 3.87 ng/dL (<=0.50); CALCIUM 8.3 mg/dL (8.5-10.1); CARBON DIOXIDE,CO2 27 mmol/L (21-32); CHLORIDE,CL 107 mmol/L (98-107); CREATININE 0.74 mg/dL (0.55-1.02); GLUCOSE RANDOM 99 mg/dL (70-99); MAGNESIUM 1.5 mg/dL (1.8-2.4); POTASSIUM,K 3.3 mmol/L (3.5-5.1); PROTEIN TOTAL,TP 5.9 g/dL (6.4-8.2); SODIUM,NA 143 mmol/L (136-145)
[2023-06-01 07:09] LABS: A/G RATIO 0.79; ESTIMATED GFR 85 mL/min (>=60)
[2023-06-01] MEDS: Diltiazem 120 MG Cap.CD PO SCH (08:44)
[2023-06-01] MEDS: Aspirin 81 MG Tab.Chew PO SCH (08:44)
[2023-06-01] MEDS: Losartan 50 MG Tab PO SCH (08:47)
[2023-06-01] MEDS: Acetaminophen/HYDROcodone 325-5 MG Tab PO PRN (21:35)
[2023-06-02 06:43] LABS: CREATININE 0.73 mg/dL (0.55-1.02); VANCOMYCIN RANDOM 20.7 ug/mL (No Normal Range)
[2023-06-02 06:45] LABS: ESTIMATED GFR 87 mL/min (>=60)
[2023-06-02] MEDS: Insulin Glarg,Human.Rec.Analog 100 Unit/ML 10 ML Vial SUBCUT SCH (09:51)
[2023-06-02] MEDS: Furosemide 20 MG Tab PO SCH (09:52)
[2023-06-02] MEDS: BREO INH SCH (09:52)
[2023-06-02] MEDS: Nicotine 21 MG/24 Hr Patch TRDERM ONE (17:26)
[2023-06-02] MEDS: amLODIPine 5 MG Tab PO SCH (21:48)
[2023-06-03] MEDS: Nicotine 21 MG/24 Hr Patch TRDERM SCH (08:57)
[2023-06-05 06:32] LABS: BASOPHILS PERCENT AUTO 0.3 % (0.0-1.0); EOSINOPHILS PERCENT AUTO 2.2 % (1.0-3.0); HEMATOCRIT 33.9 % (37.0-47.0); HEMOGLOBIN 10.6 g/dL (12.0-16.0); LYMPHOCYTES PERCENT AUTO 16.6 % (20.5-50.1); MEAN CORPUSCULAR HGB CONC 31.3 g/dL (33.0-35.0); MONOCYTES PERCENT AUTO 8.5 % (2-8); NEUTROPHILS PERCENT AUTO 72.4 % (42.2-75.2); PLATELET COUNT,PLT 363 10^3/uL (150-450); RED BLOOD CELL COUNT 3.53 10^6/uL (4.2-5.4); WHITE BLOOD CELL COUNT,WBC 12.8 10^3/uL (5.0-10.0)
[2023-06-05 06:57] LABS: A/G RATIO 0.71; ALBUMIN 2.5 g/dL (3.4-5.0); BILIRUBIN TOTAL 0.3 mg/dL (0.2-1.0); BUN/CREATININE RATIO 22.9 (No establ ref range); CALCIUM 8.5 mg/dL (8.5-10.1); CREATININE 0.7 mg/dL (0.55-1.02); EST CRCL DRUG DOSING (CG) 65.71 mL/min; MAGNESIUM 1.8 mg/dL (1.8-2.4)
== END 2023-06-07 12:50 | disposition home health service (06) | DRG 948 ==
LOC: DL.MS 09:27
PROVIDERS: ADMIT Internal Medicine; ATTEND Family Medicine Adult Medicine
DX: R53.81 Other malaise (principal); I10 Essential (primary) hypertension; I48.0 Paroxysmal atrial fibrillation; K29.50 Unspecified chronic gastritis without bleeding; J44.9 Chronic obstructive pulmonary disease, unspecified; F17.200 Nicotine dependence, unspecified, uncomplicated; M19.90 Unspecified osteoarthritis, unspecified site; G25.81 Restless legs syndrome; E66.9 Obesity, unspecified; E78.00 Pure hypercholesterolemia, unspecified; K21.9 Gastro-esophageal reflux disease without esophagitis; F41.9 Anxiety disorder, unspecified; F32.A Depression, unspecified; R53.1 Weakness; E11.65 Type 2 diabetes mellitus with hyperglycemia; Z86.73 Personal history of transient ischemic attack (TIA), and cerebral infarction without residual deficits; Z79.01 Long term (current) use of anticoagulants; Z87.442 Personal history of urinary calculi; Z68.33 Body mass index [BMI] 33.0-33.9, adult; Z79.899 Other long term (current) drug therapy; Z79.82 Long term (current) use of aspirin; Z79.51 Long term (current) use of inhaled steroids; Z79.4 Long term (current) use of insulin; Z98.49 Cataract extraction status, unspecified eye; Z90.89 Acquired absence of other organs
CPT/HCPCS: 36415; 71045; 80053; 80202; 82565; 82947; 83735; 85025; 86140; 97110-GO; 97110-GP; 97116-GP; 97161-GP; 97165-GO; 97530-GO; 99305; 99315; A9270-GY; J0295; J0360; J3370; J3490; J7050

== ENCOUNTER 2024-02-23 10:35 | Inpatient (IN) | payer MEDICARE, MEDICAID ==
[2024-02-23 10:58] LABS: BASOPHILS PERCENT AUTO 0.1 % (0.0-1.0); HEMOGLOBIN 10.4 g/dL (12.0-16.0); LYMPHOCYTES PERCENT AUTO 4.2 % (20.5-50.1); MEAN CORPUSCULAR HEMOGLOBIN 28.7 pg (27.0-34.0); MEAN CORPUSCULAR HGB CONC 31.5 g/dL (33.0-35.0); MEAN CORPUSCULAR VOLUME 90.9 fL (80-100); MONOCYTES PERCENT AUTO 7.5 % (2-8); NEUTROPHILS PERCENT AUTO 88.2 % (42.2-75.2); PLATELET COUNT,PLT 378 10^3/uL (150-450); RED BLOOD CELL COUNT 3.63 10^6/uL (4.2-5.4); WHITE BLOOD CELL COUNT,WBC 22.5 10^3/uL (5.0-10.0)
[2024-02-23] MEDS: Azithromycin 500 MG in Sodium Chloride 0.9% 250 ML IV ONE (11:14)
[2024-02-23] MEDS: Sodium Chloride 0.9% 1,000 ML IV ONE (11:14)
[2024-02-23] MEDS: cefTRIAXone 2 GM Vial IVPUSH ONE (11:14)
[2024-02-23 11:18] LABS: ALANINE AMINOTRANSFERASE,ALT 14 U/L (14-59); ALBUMIN 2.7 g/dL (3.4-5.0); ALKALINE PHOSPHATASE 117 U/L (46-116); ANION GAP 15.4 mEq/L (7-13); ASPARTATE AMNIOTRANSFERASE,AST 15 U/L (15-37); BILIRUBIN TOTAL 0.6 mg/dL (0.2-1.0); BLOOD UREA NITROGEN,BUN 17 mg/dL (7-18); CALCIUM 8.9 mg/dL (8.5-10.1); CARBON DIOXIDE,CO2 25 mmol/L (21-32); CHLORIDE,CL 102 mmol/L (98-107); GLUCOSE RANDOM 184 mg/dL (70-99); POTASSIUM,K 4.4 mmol/L (3.5-5.1); PROTEIN TOTAL,TP 6.8 g/dL (6.4-8.2); SODIUM,NA 138 mmol/L (136-145)
[2024-02-23 11:21] LABS: A/G RATIO 0.66; C-REACTIVE PROTEIN > 25.00 ng/dL (<=0.50); ESTIMATED GFR 59 mL/min (>=60); LACTIC ACID 1.5 mmol/L (0.4-2.0)
[2024-02-23] MEDS: Albuterol 0.083% 2.5 MG/3 ML Neb Soln NEB ONE (12:19)
[2024-02-23] MEDS ORDERED: Docusate Sodium 100 MG Cap PO PRN (12:41)
[2024-02-23] MEDS ORDERED: Albuterol/Ipratropium 3.0-0.5 MG/3 ML Neb Soln NEB PRN (12:41)
[2024-02-23] MEDS ORDERED: Ondansetron 4 MG/2 ML SDV IVPUSH PRN (12:41)
[2024-02-23] MEDS ORDERED: Acetaminophen 325 MG Tab PO PRN (12:41)
[2024-02-23] MEDS: Enoxaparin 40 MG/0.4 ML Syringe SUBCUT SCH (13:35)
[2024-02-23] MEDS: Albuterol/Ipratropium 3.0-0.5 MG/3 ML Neb Soln NEB SCH (13:35)
[2024-02-23] MEDS: Acetaminophen/HYDROcodone 325-10 MG Tab PO SCH (13:39)
[2024-02-23] MEDS ORDERED: Albuterol 6.7 GM Inhaler INH PRN (15:33)
[2024-02-23] MEDS ORDERED: Non-Formulary Medication 1 Each (Umeclidinium Bromide [Incruse Ellipta*] 62.5 MCG Blst.W.D INH SCH (15:45)
[2024-02-23] MEDS: Acetaminophen/HYDROcodone 325-5 MG Tab PO SCH (16:46)
[2024-02-23] MEDS: Furosemide 20 MG Tab PO SCH (16:46)
[2024-02-23] MEDS: Potassium Chloride 10 MEQ Tab.ER PO SCH (16:51)
[2024-02-23] MEDS: Pantoprazole 40 MG Tab.CR PO SCH (16:51)
[2024-02-23] MEDS: Diltiazem 240 MG Cap.ER PO SCH (16:51)
[2024-02-23] MEDS: Oxybutynin 5 MG Tab.ER PO SCH (16:51)
[2024-02-23] MEDS: rOPINIRole 2 MG Tab PO SCH (20:19)
[2024-02-23] MEDS: DULoxetine 30 MG Cap PO SCH (20:19)
[2024-02-23] MEDS: atorvaSTATin 20 MG Tab PO SCH (20:19)
[2024-02-23] MEDS: Gabapentin 400 MG Cap PO SCH (20:19)
[2024-02-23] MEDS ORDERED: Non-Formulary Medication 1 Each (Aripiprazole [Abilify] 5 MG Tablet) PO SCH (21:00)
[2024-02-23] MEDS ORDERED: Non-Formulary Medication 1 Each (Mirabegron [Myrbetriq] 25 MG Tab.Er) PO SCH (21:00)
[2024-02-23] MEDS: Apixaban 5 MG Tab PO SCH (21:36)
[2024-02-23] MEDS: QUEtiapine 25 MG Tab PO SCH (21:36)
[2024-02-23] MEDS: Oxybutynin 5 MG Tab PO SCH (21:36)
[2024-02-23] MEDS: Nicotine 21 MG/24 Hr Patch TRDERM SCH (21:36)
[2024-02-24] MEDS: Tiotropium Bromide 4 GM Inhalation Spray (2.5mcg/1 dose; 10 doses) INH SCH (05:17)
[2024-02-24 06:40] LABS: BASOPHILS PERCENT AUTO 0.2 % (0.0-1.0); EOSINOPHILS PERCENT AUTO 1.5 % (1.0-3.0); HEMATOCRIT 30.3 % (37.0-47.0); HEMOGLOBIN 9.3 g/dL (12.0-16.0); LYMPHOCYTES PERCENT AUTO 16.6 % (20.5-50.1); MEAN CORPUSCULAR HEMOGLOBIN 28.8 pg (27.0-34.0); MEAN CORPUSCULAR HGB CONC 30.7 g/dL (33.0-35.0); MEAN CORPUSCULAR VOLUME 93.8 fL (80-100); MONOCYTES PERCENT AUTO 8.8 % (2-8); NEUTROPHILS PERCENT AUTO 72.9 % (42.2-75.2); PLATELET COUNT,PLT 352 10^3/uL (150-450); RED BLOOD CELL COUNT 3.23 10^6/uL (4.2-5.4); WHITE BLOOD CELL COUNT,WBC 15.1 10^3/uL (5.0-10.0)
[2024-02-24 06:58] LABS: ALBUMIN 2.3 g/dL (3.4-5.0); BILIRUBIN TOTAL 0.3 mg/dL (0.2-1.0); BUN/CREATININE RATIO 19.5 (No establ ref range); CALCIUM 8.6 mg/dL (8.5-10.1); CREATININE 1.13 mg/dL (0.55-1.02); EST CRCL DRUG DOSING (CG) 42.47 mL/min
[2024-02-24 06:59] LABS: A/G RATIO 0.62
[2024-02-24] MEDS: Losartan 50 MG Tab PO SCH (08:36)
[2024-02-24] MEDS: metFORMIN 500 MG Tab PO SCH (08:37)
[2024-02-24] MEDS: Azithromycin 500 MG in Sodium Chloride 0.9% 250 ML IV SCH (08:38)
[2024-02-24] MEDS: Glimepiride 2 MG Tab PO SCH (08:38)
[2024-02-24] MEDS: cefTRIAXone 1 GM Vial IV SCH (08:39)
[2024-02-24] MEDS: Azithromycin 500 MG Vial ONE (14:22)
[2024-02-24] MEDS ORDERED: 50% Dextrose in Water 50 ML Syringe IVPUSH PRN (21:43)
[2024-02-25 05:47] LABS: HEMATOCRIT 30.4 % (37.0-47.0); HEMOGLOBIN 9.3 g/dL (12.0-16.0); MEAN CORPUSCULAR HEMOGLOBIN 28.6 pg (27.0-34.0); MEAN CORPUSCULAR HGB CONC 30.6 g/dL (33.0-35.0); MEAN CORPUSCULAR VOLUME 93.5 fL (80-100); PLATELET COUNT,PLT 381 10^3/uL (150-450); RED BLOOD CELL COUNT 3.25 10^6/uL (4.2-5.4); WHITE BLOOD CELL COUNT,WBC 14.2 10^3/uL (5.0-10.0)
[2024-02-25 05:54] LABS: BASOPHILS PERCENT AUTO 0.1 % (0.0-1.0); EOSINOPHILS PERCENT AUTO 2.9 % (1.0-3.0); LYMPHOCYTES PERCENT AUTO 17.6 % (20.5-50.1); MONOCYTES PERCENT AUTO 10.5 % (2-8); NEUTROPHILS PERCENT AUTO 68.9 % (42.2-75.2)
[2024-02-25 06:30] LABS: ALBUMIN 2.2 g/dL (3.4-5.0); ANION GAP 13.8 mEq/L (7-13); BILIRUBIN TOTAL 0.2 mg/dL (0.2-1.0); BUN/CREATININE RATIO 23.6 (No establ ref range); CALCIUM 8.8 mg/dL (8.5-10.1); CREATININE 1.1 mg/dL (0.55-1.02); EST CRCL DRUG DOSING (CG) 43.63 mL/min; POTASSIUM,K 4.8 mmol/L (3.5-5.1); PROTEIN TOTAL,TP 5.8 g/dL (6.4-8.2)
[2024-02-25 06:31] LABS: BAND PERCENT MAN 1 %; EOSINOPHILS PERCENT MAN 2 % (1-3); LYMPHOCYTES % ATYPICAL MANUAL 3 %; LYMPHOCYTES PERCENT MAN 16 % (20-50); MONOCYTES PERCENT MAN 7 % (2-8); SEG NEUTROPHILS PERCENT MAN 71 % (42-75)
[2024-02-25 06:32] LABS: A/G RATIO 0.61
[2024-02-26] MEDS: methylPREDNISolone Sodium Succinate 40 MG/1 ML SDV IVPUSH SCH (01:06)
[2024-02-26 06:34] LABS: HEMATOCRIT 31.3 % (37.0-47.0); HEMOGLOBIN 9.5 g/dL (12.0-16.0); MEAN CORPUSCULAR HEMOGLOBIN 28.5 pg (27.0-34.0); MEAN CORPUSCULAR HGB CONC 30.4 g/dL (33.0-35.0); RED BLOOD CELL COUNT 3.33 10^6/uL (4.2-5.4); WHITE BLOOD CELL COUNT,WBC 11.3 10^3/uL (5.0-10.0)
[2024-02-26 06:50] LABS: ANION GAP 12.9 mEq/L (7-13); CREATININE 0.95 mg/dL (0.55-1.02); EST CRCL DRUG DOSING (CG) 50.52 mL/min; POTASSIUM,K 5.9 mmol/L (3.5-5.1)
[2024-02-26] MEDS: Azithromycin 500 MG Vial ONE (09:21)
[2024-02-26 09:43] LABS: ANION GAP 15.1 mEq/L (7-13); CALCIUM 9.1 mg/dL (8.5-10.1); CREATININE 1.1 mg/dL (0.55-1.02); EST CRCL DRUG DOSING (CG) 43.63 mL/min; POTASSIUM,K 6.1 mmol/L (3.5-5.1)
[2024-02-26] MEDS ORDERED: 50% Dextrose in Water 50 ML Syringe IVPUSH PRN ×4 (09:49→16:04)
[2024-02-26] MEDS ORDERED: Glucagon,Human Recombinant 1 MG Vial IM PRN ×4 (09:49→16:04)
[2024-02-26] MEDS: Insulin Glarg,Human.Rec.Analog 100 Unit/ML 10 ML Vial SUBCUT ONE (10:48)
[2024-02-26] MEDS: Insulin Lispro 100 Units/ML 3 ML Vial SUBCUT ONE (10:49)
[2024-02-26] MEDS: Insulin Lispro 100 Units/ML 3 ML Vial SUBCUT STA (13:30)
[2024-02-26] MEDS: Sodium Polystyrene Sulfonate 15 GM/60 ML Susp 60 ML Bot PO STA (13:30)
[2024-02-26] MEDS: Sodium Zirconium Cyclosilicate 5 GM Packet PO ONE (13:31)
[2024-02-26] MEDS: Calcium Gluconate 10% 1 GM/10 ML SDV IVPUSH ONE (13:31)
[2024-02-26] MEDS: Sodium Chloride 0.9% 10 ML Syringe FLUSH PRN (19:52)
[2024-02-26] MEDS: QUEtiapine 25 MG Tab PO SCH (22:24)
[2024-02-26] MEDS: Insulin Glarg,Human.Rec.Analog 100 Unit/ML 10 ML Vial SUBCUT SCH (22:28)
[2024-02-27 06:57] LABS: ANION GAP 17.1 mEq/L (7-13); CALCIUM 9.5 mg/dL (8.5-10.1); POTASSIUM,K 4.1 mmol/L (3.5-5.1)
[2024-02-27] MEDS: Furosemide 20 MG/2 ML VIAL IVPUSH ONE (10:56)
[2024-02-27] MEDS: Iopamidol 612 MG/ML 100 ML Bottle IVPUSH ONE (18:29)
[2024-02-27] MEDS ORDERED: 50% Dextrose in Water 50 ML Syringe IVPUSH PRN ×2 (19:53→19:54)
[2024-02-27] MEDS ORDERED: Glucagon,Human Recombinant 1 MG Vial IM PRN ×2 (19:53→19:54)
[2024-02-27] MEDS: Insulin Glarg,Human.Rec.Analog 100 Unit/ML 10 ML Vial SUBCUT SCH (20:20)
[2024-02-28 06:09] LABS: ANION GAP 11.5 mEq/L (7-13); CALCIUM 8.9 mg/dL (8.5-10.1); CREATININE 0.88 mg/dL (0.55-1.02); EST CRCL DRUG DOSING (CG) 54.54 mL/min; POTASSIUM,K 3.5 mmol/L (3.5-5.1)
[2024-02-28] MEDS: Insulin Lispro 100 Units/ML 3 ML Vial SUBCUT SCH (09:05)
[2024-02-28 09:32] LABS: HEMATOCRIT 30.9 % (37.0-47.0); HEMOGLOBIN 9.5 g/dL (12.0-16.0); MEAN CORPUSCULAR HGB CONC 30.7 g/dL (33.0-35.0); MEAN CORPUSCULAR VOLUME 91.2 fL (80-100); RED BLOOD CELL COUNT 3.39 10^6/uL (4.2-5.4); WHITE BLOOD CELL COUNT,WBC 19.1 10^3/uL (5.0-10.0)
[2024-02-28] MEDS: Azithromycin 250 MG Tab PO ONE (10:15)
== END 2024-02-28 11:25 | disposition home health service (06) | DRG 193 ==
LOC: DL.ED 10:35 → DL.MS 11:26
PROVIDERS: ADMIT Internal Medicine; ATTEND Internal Medicine
DX: A41.9 Sepsis, unspecified organism (principal); J18.9 Pneumonia, unspecified organism; J96.01 Acute respiratory failure with hypoxia; J44.0 Chronic obstructive pulmonary disease with (acute) lower respiratory infection; D84.9 Immunodeficiency, unspecified; I48.91 Unspecified atrial fibrillation; I10 Essential (primary) hypertension; H26.9 Unspecified cataract; E78.00 Pure hypercholesterolemia, unspecified; K21.9 Gastro-esophageal reflux disease without esophagitis; F15.90 Other stimulant use, unspecified, uncomplicated; M19.90 Unspecified osteoarthritis, unspecified site; F41.9 Anxiety disorder, unspecified; F32.A Depression, unspecified; E10.9 Type 1 diabetes mellitus without complications; E66.9 Obesity, unspecified; F17.210 Nicotine dependence, cigarettes, uncomplicated; Z79.01 Long term (current) use of anticoagulants; Z88.8 Allergy status to other drugs, medicaments and biological substances; Z79.4 Long term (current) use of insulin; Z79.1 Long term (current) use of non-steroidal anti-inflammatories (NSAID); Z79.82 Long term (current) use of aspirin; Z79.51 Long term (current) use of inhaled steroids; Z79.02 Long term (current) use of antithrombotics/antiplatelets; Z79.899 Other long term (current) drug therapy; Z98.49 Cataract extraction status, unspecified eye; Z90.89 Acquired absence of other organs; Z98.890 Other specified postprocedural states
CPT/HCPCS: 36415; 80053; 83605; 85025; 86140; 87040 ×2; 96374; 96375; 99285; J0456; J0696; J7030; J7050; 71045; 71270; 80048; 82947; 85027; 87070; 87205; 94640; 97161-GP; 97165-GO; 97530-GO; 99223; 99232; 99233; 99239; A9270-GY; J0612; J1650; J1815-GY; J1940; J2919; J3490; J7613-GY; J7620-GY; Q9967

== ENCOUNTER 2024-03-06 15:28 | Inpatient (IN) | payer MEDICARE, MEDICAID ==
[2024-03-06] MEDS ORDERED: Sodium Chloride 0.9% 10 ML Syringe FLUSH PRN (16:13)
[2024-03-06] MEDS ORDERED: Glucagon,Human Recombinant 1 MG Vial IM PRN ×2 (16:13)
[2024-03-06] MEDS ORDERED: Albuterol 6.7 GM Inhaler INH PRN (16:13)
[2024-03-06] MEDS ORDERED: Acetaminophen 325 MG Tab PO PRN (16:13)
[2024-03-06] MEDS ORDERED: oxyCODONE 5 MG Tab PO PRN (16:13)
[2024-03-06] MEDS ORDERED: Ipratropium 0.02% 0.5 MG/2.5 ML Neb Soln INH PRN (16:13)
[2024-03-06] MEDS ORDERED: 50% Dextrose in Water 50 ML Syringe IVPUSH PRN (16:13)
[2024-03-06] MEDS: Acetaminophen/HYDROcodone 325-5 MG Tab PO SCH (16:30)
[2024-03-06] MEDS: methylPREDNISolone Sodium Succinate 40 MG/1 ML SDV IVPUSH SCH (17:30)
[2024-03-06] MEDS: Insulin Lispro 100 Units/ML 3 ML Vial SUBCUT SCH (17:30)
[2024-03-06] MEDS: Piperacillin/Tazobactam 4.5 GM in Sodium Chloride 0.9% 100 ML IV SCH (18:00)
[2024-03-06] MEDS: VANCOmycin 1.25 GM in Sodium Chloride 0.9% 250 ML IV SCH (18:00)
[2024-03-06] MEDS: Albuterol/Ipratropium 3.0-0.5 MG/3 ML Neb Soln NEB SCH (18:00)
[2024-03-06] MEDS: atorvaSTATin 20 MG Tab PO SCH (22:30)
[2024-03-06] MEDS: DULoxetine 30 MG Cap PO SCH (22:30)
[2024-03-06] MEDS: MIRABEGRON 50 MG PO SCH (22:30)
[2024-03-06] MEDS: ARIPIPRAZOLE 5 MG PO SCH (22:30)
[2024-03-06] MEDS: Apixaban 5 MG Tab PO SCH (22:30)
[2024-03-06] MEDS: rOPINIRole 2 MG Tab PO SCH (22:30)
[2024-03-06] MEDS: metFORMIN 500 MG Tab PO SCH (22:30)
[2024-03-06] MEDS: Gabapentin 300 MG Cap PO SCH (23:30)
[2024-03-07] MEDS: Loperamide 2 MG Cap PO PRN (01:54)
[2024-03-07 06:50] LABS: ANION GAP 10.1 mEq/L (7-13); C-REACTIVE PROTEIN 0.51 ng/dL (<=0.50); CALCIUM 8.2 mg/dL (8.5-10.1); CREATININE 0.91 mg/dL (0.55-1.02); EST CRCL DRUG DOSING (CG) 52.74 mL/min; POTASSIUM,K 3.1 mmol/L (3.5-5.1)
[2024-03-07] MEDS: Diltiazem 240 MG Cap.ER PO SCH (08:29)
[2024-03-07] MEDS: Oxybutynin 5 MG Tab.ER PO SCH (08:30)
[2024-03-07] MEDS: Losartan 50 MG Tab PO SCH (08:30)
[2024-03-07] MEDS: Glimepiride 2 MG Tab PO SCH (08:31)
[2024-03-07] MEDS: Nicotine 14 MG/24 Hr Patch TRDERM SCH (08:31)
[2024-03-07] MEDS: Pantoprazole 40 MG Tab.CR PO SCH (08:31)
[2024-03-07] MEDS: Furosemide 20 MG/2 ML VIAL IVPUSH SCH (08:33)
[2024-03-07] MEDS: Fluconazole 100 MG Tab PO ONE (11:48)
[2024-03-07] MEDS: guaiFENesin 600 MG Tab.ER PO SCH (14:53)
[2024-03-07] MEDS: Empagliflozin 10 MG Tab PO SCH (19:32)
[2024-03-07] MEDS: Piperacillin/Tazobactam 4.5 GM in Sodium Chloride 0.9% 100 ML IV SCH (20:25)
[2024-03-07] MEDS: Dexamethasone 4 MG Tab PO SCH (20:26)
[2024-03-07] MEDS: guaiFENesin/Dextromethorphan 100-10 MG/5 ML Soln 5 ML Cup PO PRN (21:58)
[2024-03-07] MEDS: Benzonatate 100 MG Cap PO PRN (21:59)
[2024-03-08] MEDS: diphenhydrAMINE 50 MG/ML SDV IVPUSH ONE (03:35)
[2024-03-08 06:03] LABS: HEMATOCRIT 30.8 % (37.0-47.0); HEMOGLOBIN 9.7 g/dL (12.0-16.0); MEAN CORPUSCULAR HEMOGLOBIN 28.2 pg (27.0-34.0); MEAN CORPUSCULAR HGB CONC 31.5 g/dL (33.0-35.0); MEAN CORPUSCULAR VOLUME 89.5 fL (80-100); PLATELET COUNT,PLT 382 10^3/uL (150-450); RED BLOOD CELL COUNT 3.44 10^6/uL (4.2-5.4)
[2024-03-08 06:08] LABS: BASOPHILS PERCENT AUTO 0.1 % (0.0-1.0); LYMPHOCYTES PERCENT AUTO 4.4 % (20.5-50.1); MONOCYTES PERCENT AUTO 7.1 % (2-8); NEUTROPHILS PERCENT AUTO 88.4 % (42.2-75.2)
[2024-03-08 06:28] LABS: ANION GAP 11.5 mEq/L (7-13); CALCIUM 8.5 mg/dL (8.5-10.1); CREATININE 0.95 mg/dL (0.55-1.02); EST CRCL DRUG DOSING (CG) 50.52 mL/min; POTASSIUM,K 3.5 mmol/L (3.5-5.1); VANCOMYCIN RANDOM 16.2 ug/mL (No Normal Range)
[2024-03-08 06:31] LABS: BAND PERCENT MAN 2 %; LYMPHOCYTES PERCENT MAN 4 % (20-50); MONOCYTES PERCENT MAN 3 % (2-8); SEG NEUTROPHILS PERCENT MAN 91 % (42-75)
[2024-03-08] MEDS: Albuterol/Ipratropium 3.0-0.5 MG/3 ML Neb Soln NEB SCH (06:42)
[2024-03-08] MEDS: Formoterol/Mometasone 200-5 MCG 8.8 GM Inhaler INH SCH (06:45)
[2024-03-08] MEDS: Tiotropium Bromide 4 GM Inhalation Spray (2.5mcg/1 dose; 10 doses) INH SCH (06:46)
[2024-03-08] MEDS: Fluconazole 100 MG Tab PO SCH (08:29)
[2024-03-08] MEDS: Dexamethasone 4 MG Tab PO SCH (08:31)
[2024-03-08] MEDS: Dextrose 5% in Water 1,000 ML IV SCH (13:11)
[2024-03-08] MEDS: Montelukast 10 MG Tab PO SCH (20:27)
[2024-03-08] MEDS: Loratadine 10 MG Tab PO SCH (20:28)
[2024-03-09 06:30] LABS: HEMATOCRIT 30.7 % (37.0-47.0); HEMOGLOBIN 9.5 g/dL (12.0-16.0); MEAN CORPUSCULAR HEMOGLOBIN 27.8 pg (27.0-34.0); MEAN CORPUSCULAR HGB CONC 30.9 g/dL (33.0-35.0); MEAN CORPUSCULAR VOLUME 89.8 fL (80-100); PLATELET COUNT,PLT 371 10^3/uL (150-450); RED BLOOD CELL COUNT 3.42 10^6/uL (4.2-5.4); WHITE BLOOD CELL COUNT,WBC 12.8 10^3/uL (5.0-10.0)
[2024-03-09 06:31] LABS: ANION GAP 11.3 mEq/L (7-13); CALCIUM 8.3 mg/dL (8.5-10.1); POTASSIUM,K 3.3 mmol/L (3.5-5.1)
[2024-03-09 06:41] LABS: BASOPHILS PERCENT AUTO 0.2 % (0.0-1.0); LYMPHOCYTES PERCENT AUTO 5.5 % (20.5-50.1); MONOCYTES PERCENT AUTO 7.8 % (2-8); NEUTROPHILS PERCENT AUTO 86.5 % (42.2-75.2)
[2024-03-09 06:42] LABS: BAND PERCENT MAN 2 %; LYMPHOCYTES PERCENT MAN 8 % (20-50); MONOCYTES PERCENT MAN 5 % (2-8); SEG NEUTROPHILS PERCENT MAN 85 % (42-75)
[2024-03-09] MEDS: Potassium Chloride 10 MEQ Tab.ER PO ONE (10:14)
[2024-03-10 06:19] LABS: BASOPHILS PERCENT AUTO 0.1 % (0.0-1.0); EOSINOPHILS PERCENT AUTO 0.1 % (1.0-3.0); HEMATOCRIT 29.1 % (37.0-47.0); HEMOGLOBIN 9.1 g/dL (12.0-16.0); LYMPHOCYTES PERCENT AUTO 4.9 % (20.5-50.1); MEAN CORPUSCULAR HEMOGLOBIN 28.1 pg (27.0-34.0); MEAN CORPUSCULAR HGB CONC 31.3 g/dL (33.0-35.0); MEAN CORPUSCULAR VOLUME 89.8 fL (80-100); MONOCYTES PERCENT AUTO 4.7 % (2-8); NEUTROPHILS PERCENT AUTO 90.2 % (42.2-75.2); PLATELET COUNT,PLT 356 10^3/uL (150-450); RED BLOOD CELL COUNT 3.24 10^6/uL (4.2-5.4); WHITE BLOOD CELL COUNT,WBC 15.1 10^3/uL (5.0-10.0)
[2024-03-10 06:46] LABS: ALBUMIN 2.7 g/dL (3.4-5.0); ANION GAP 14.3 mEq/L (7-13); BILIRUBIN TOTAL 0.7 mg/dL (0.2-1.0); BUN/CREATININE RATIO 26.2 (No establ ref range); CALCIUM 8.6 mg/dL (8.5-10.1); CREATININE 0.84 mg/dL (0.55-1.02); EST CRCL DRUG DOSING (CG) 57.14 mL/min; MAGNESIUM 1.8 mg/dL (1.8-2.4); POTASSIUM,K 4.3 mmol/L (3.5-5.1); PROTEIN TOTAL,TP 5.5 g/dL (6.4-8.2)
[2024-03-10 06:49] LABS: A/G RATIO 0.96
[2024-03-10] MEDS: Dexamethasone 2 MG Tab PO SCH (09:16)
[2024-03-10 17:54] LABS: INR 1.1 (0.9-1.2); PROTHROMBIN TIME 11.5 SEC (9.0-12.0); PTT,PARTIAL THROMBOPLSTIN TIME 21.9 SEC (22.0-34.0)
[2024-03-11] MEDS: Albuterol/Ipratropium 3.0-0.5 MG/3 ML Neb Soln NEB PRN (13:06)
[2024-03-11] MEDS: Sodium Chloride 0.9% 10 ML Syringe FLUSH PRN (13:27)
[2024-03-11] MEDS: Melatonin 3 MG Tab PO PRN (20:36)
[2024-03-12] MEDS: Ampicillin/Sulbactam Na 1.5 GM in Sodium Chloride 0.9% 100 ML IV SCH (00:50)
[2024-03-12] MEDS: Furosemide 20 MG/2 ML VIAL IVPUSH ONE (17:25)
[2024-03-12] MEDS: Apixaban 5 MG Tab PO SCH (21:11)
[2024-03-13] MEDS: Furosemide 20 MG/2 ML VIAL IVPUSH ONE (12:31)
== END 2024-03-14 10:40 | disposition home or self-care (01) | DRG 947 ==
LOC: DL.MS 16:00
PROVIDERS: ADMIT Internal Medicine; ATTEND Internal Medicine
DX: R53.1 Weakness (principal); J18.9 Pneumonia, unspecified organism; E87.0 Hyperosmolality and hypernatremia; E78.00 Pure hypercholesterolemia, unspecified; I10 Essential (primary) hypertension; J44.9 Chronic obstructive pulmonary disease, unspecified; K21.9 Gastro-esophageal reflux disease without esophagitis; M19.90 Unspecified osteoarthritis, unspecified site; F41.8 Other specified anxiety disorders; D64.9 Anemia, unspecified; E61.1 Iron deficiency; F15.90 Other stimulant use, unspecified, uncomplicated; I35.1 Nonrheumatic aortic (valve) insufficiency; E87.6 Hypokalemia; K29.50 Unspecified chronic gastritis without bleeding; E11.9 Type 2 diabetes mellitus without complications; E55.9 Vitamin D deficiency, unspecified; I48.0 Paroxysmal atrial fibrillation; E66.811 Obesity, class 1; G25.81 Restless legs syndrome; G25.5 Other chorea; Z68.30 Body mass index [BMI] 30.0-30.9, adult; Z72.0 Tobacco use; Z90.49 Acquired absence of other specified parts of digestive tract; Z79.899 Other long term (current) drug therapy; Z98.890 Other specified postprocedural states; Z86.73 Personal history of transient ischemic attack (TIA), and cerebral infarction without residual deficits; Z79.01 Long term (current) use of anticoagulants
CPT/HCPCS: 36415; 80048; 80053; 80202; 82947; 83735; 85025; 85610; 85730; 86140; 93971; 94640; 94664; 94667; 94668; 97161-GP; 97165-GO; 97530-GO; 97530-GP; 99306; 99309; 99315; A9270-GY; J0295; J1200; J1940; J2543; J2919; J3371; J3490; J7060; J7620-GY; J8540

== ENCOUNTER 2024-10-26 15:45 | Emergency (ER) | payer MEDICARE, MEDICAID ==
[2024-10-26 16:19] LABS: BASOPHILS PERCENT AUTO 0.2 % (0.0-1.0); EOSINOPHILS PERCENT AUTO 0.1 % (1.0-3.0); LYMPHOCYTES PERCENT AUTO 8.4 % (20.5-50.1); MONOCYTES PERCENT AUTO 9.9 % (2-8); NEUTROPHILS PERCENT AUTO 81.4 % (42.2-75.2); PLATELET COUNT,PLT 278 10^3/uL (150-450); RED BLOOD CELL COUNT 2.79 10^6/uL (4.2-5.4); WHITE BLOOD CELL COUNT,WBC 13.8 10^3/uL (5.0-10.0)
[2024-10-26 16:32] LABS: B-TYPE NATRIURETIC PEPTIDE,BNP 36.0 pg/ml (0-100)
[2024-10-26 16:38] LABS: ALANINE AMINOTRANSFERASE,ALT 9.0 U/L (14-59); ASPARTATE AMNIOTRANSFERASE,AST 9.0 U/L (15-37); BILIRUBIN TOTAL 0.3 mg/dL (0.2-1.0); BLOOD UREA NITROGEN,BUN 10.0 mg/dL (7-18); CARBON DIOXIDE,CO2 22.0 mmol/L (21-32); CREATININE 0.78 mg/dL (0.55-1.02); EST CRCL DRUG DOSING (CG) 58.34 mL/min; GLUCOSE RANDOM 128.0 mg/dL (70-99); PROTEIN TOTAL,TP 4.7 g/dL (6.4-8.2)
[2024-10-26 16:43] LABS: CHLORIDE,CL 115.0 mmol/L (98-107); POTASSIUM,K 3.0 mmol/L (3.5-5.1); SODIUM,NA 146.0 mmol/L (136-145)
[2024-10-26 16:44] LABS: A/G RATIO 0.88; ESTIMATED GFR 79.0 mL/min (>=60)
[2024-10-26] MEDS: Take Home: Doxycycline 100 MG Cap, 4 Cap Pack PO ONE (17:06)
== END 2024-10-26 17:13 | disposition home or self-care (01) ==
LOC: DL.ED 15:45
DX: J45.909 Unspecified asthma, uncomplicated (principal); J20.9 Acute bronchitis, unspecified; I48.91 Unspecified atrial fibrillation; E78.00 Pure hypercholesterolemia, unspecified; I10 Essential (primary) hypertension; K21.9 Gastro-esophageal reflux disease without esophagitis; I25.2 Old myocardial infarction; E10.9 Type 1 diabetes mellitus without complications; Z79.899 Other long term (current) drug therapy; Z86.73 Personal history of transient ischemic attack (TIA), and cerebral infarction without residual deficits; Z88.1 Allergy status to other antibiotic agents; Z88.0 Allergy status to penicillin; Z88.8 Allergy status to other drugs, medicaments and biological substances; Z79.51 Long term (current) use of inhaled steroids; Z79.84 Long term (current) use of oral hypoglycemic drugs; Z79.01 Long term (current) use of anticoagulants
CPT/HCPCS: 36415; 71045; 80053; 83880; 85025; 93005; 94640; 99285; A9270; J7512

== ENCOUNTER 2024-12-19 19:51 | Emergency (ER) | payer MEDICARE, MEDICAID ==
[2024-12-19] MEDS ORDERED: Sodium Chloride 0.9% 10 ML Syringe FLUSH PRN (19:57)
[2024-12-19 20:20] LABS: BASOPHILS PERCENT AUTO 0.3 % (0.0-1.0); EOSINOPHILS PERCENT AUTO 2.8 % (1.0-3.0); LYMPHOCYTES PERCENT AUTO 21.6 % (20.5-50.1); MONOCYTES PERCENT AUTO 8.1 % (2-8); NEUTROPHILS PERCENT AUTO 67.2 % (42.2-75.2); PLATELET COUNT,PLT 393 10^3/uL (150-450); RED BLOOD CELL COUNT 3.99 10^6/uL (4.2-5.4); WHITE BLOOD CELL COUNT,WBC 14.1 10^3/uL (5.0-10.0)
[2024-12-19 20:37] LABS: INR 1.0 (0.9-1.2); PTT,PARTIAL THROMBOPLSTIN TIME 27.2 SEC (22.0-34.0)
[2024-12-19 20:41] LABS: ALANINE AMINOTRANSFERASE,ALT 16 U/L (14-59); ASPARTATE AMNIOTRANSFERASE,AST 8 U/L (15-37); BILIRUBIN TOTAL 0.2 mg/dL (0.2-1.0); BLOOD UREA NITROGEN,BUN 17 mg/dL (7-18); CARBON DIOXIDE,CO2 28 mmol/L (21-32); CHLORIDE,CL 104 mmol/L (98-107); CREATININE 1.06 mg/dL (0.55-1.02); GLUCOSE RANDOM 197 mg/dL (70-99); POTASSIUM,K 4.0 mmol/L (3.5-5.1); PROTEIN TOTAL,TP 6.5 g/dL (6.4-8.2); SODIUM,NA 143 mmol/L (136-145)
[2024-12-19 20:42] LABS: A/G RATIO 1.03; ESTIMATED GFR 55 mL/min (>=60)
[2024-12-19] MEDS: Aspirin 325 MG Tab.EC PO ONE (21:05)
== END 2024-12-20 00:29 ==
LOC: DL.ED 19:51
DX: G45.9 Transient cerebral ischemic attack, unspecified (principal); I10 Essential (primary) hypertension; I48.91 Unspecified atrial fibrillation; E10.9 Type 1 diabetes mellitus without complications; J44.9 Chronic obstructive pulmonary disease, unspecified; K21.9 Gastro-esophageal reflux disease without esophagitis; F17.200 Nicotine dependence, unspecified, uncomplicated; M19.90 Unspecified osteoarthritis, unspecified site; Z79.01 Long term (current) use of anticoagulants; Z88.0 Allergy status to penicillin; Z88.8 Allergy status to other drugs, medicaments and biological substances; Z88.1 Allergy status to other antibiotic agents; Z88.2 Allergy status to sulfonamides; Z79.899 Other long term (current) drug therapy
CPT/HCPCS: 36415; 70450; 70496; 70498; 80053; 82947; 84484; 85025; 85610; 85730; 93005; 93010; 99285; A9270

== ENCOUNTER 2024-12-30 13:48 | Inpatient (IN) | payer MEDICARE, MEDICAID ==
[2024-12-30] MEDS ORDERED: Sodium Chloride 0.9% 10 ML Syringe FLUSH PRN (14:01)
[2024-12-30 14:15] LABS: BASOPHILS PERCENT AUTO 0.2 % (0.0-1.0); EOSINOPHILS PERCENT AUTO 0.3 % (1.0-3.0); LYMPHOCYTES PERCENT AUTO 8.5 % (20.5-50.1); MONOCYTES PERCENT AUTO 11.0 % (2-8); NEUTROPHILS PERCENT AUTO 80.0 % (42.2-75.2); PLATELET COUNT,PLT 458 10^3/uL (150-450); RED BLOOD CELL COUNT 3.76 10^6/uL (4.2-5.4); WHITE BLOOD CELL COUNT,WBC 18.1 10^3/uL (5.0-10.0)
[2024-12-30 14:28] LABS: INR 1.1 (0.9-1.2)
[2024-12-30 14:36] LABS: A/G RATIO 0.94; ALANINE AMINOTRANSFERASE,ALT 13.0 U/L (14-59); ASPARTATE AMNIOTRANSFERASE,AST 12.0 U/L (15-37); BILIRUBIN TOTAL 0.4 mg/dL (0.2-1.0); BLOOD UREA NITROGEN,BUN 23.0 mg/dL (7-18); CARBON DIOXIDE,CO2 24.0 mmol/L (21-32); CHLORIDE,CL 106.0 mmol/L (98-107); CREATININE 1.06 mg/dL (0.55-1.02); EST CRCL DRUG DOSING (CG) 44.59 mL/min; ESTIMATED GFR 55.0 mL/min (>=60); GLUCOSE RANDOM 230.0 mg/dL (70-99); POTASSIUM,K 4.0 mmol/L (3.5-5.1); PROTEIN TOTAL,TP 6.8 g/dL (6.4-8.2); SODIUM,NA 142.0 mmol/L (136-145)
[2024-12-30] MEDS: Iopamidol 755 Mg/ML 100 ML Bottle IVPUSH ONE (15:41)
[2024-12-30 16:38] LABS: APPEARANCE,URINE CLEAR (CLEAR); GLUCOSE,URINE 500 (NEGATIVE); OCCULT BLOOD,URINE MODERATE (NEGATIVE)
[2024-12-30 16:48] LABS: SQUAMOUS EPITHELIAL CELLS,UR FEW /HPF (NOT SEEN)
[2024-12-30 17:07] LABS: LACTIC ACID 1.4 mmol/L (0.4-2.0)
[2024-12-30] MEDS ORDERED: Lactated Ringers 500 ML IV ONE (17:55)
[2024-12-30] MEDS ORDERED: 50% Dextrose in Water 50 ML Syringe IVPUSH PRN (18:08)
[2024-12-30] MEDS ORDERED: Ipratropium 0.02% 0.5 MG/2.5 ML Neb Soln INH SCH (18:24)
[2024-12-30] MEDS: methylPREDNISolone Sodium Succinate 40 MG/1 ML SDV IVPUSH SCH (18:45)
[2024-12-30] MEDS: Lactated Ringers 500 ML IV ONE (18:56)
[2024-12-30] MEDS: VANCOmycin 1.75 GM/350 ML 1.75 GM in Premix Bag 1 BAG IV ONE (18:58)
[2024-12-30 19:07] LABS: FOLIC ACID 12.2 ng/mL (8.6-58.9); GAMMA GLUTAMYL TRANSFERASE,GGT 18.0 U/L (5-55)
[2024-12-30 20:06] LABS: IRON,FE 8.0 ug/dL (50-170); PERCENT FE SATURATION 3.0 % (20.0-50.0)
[2024-12-30] MEDS: Fluticasone NASAL Spray 16 GM Bottle NASBOTH SCH (21:36)
[2024-12-30] MEDS: Insulin Glarg,Human.Rec.Analog 100 Unit/ML 10 ML Vial SUBCUT SCH (21:38)
[2024-12-31] MEDS: Formoterol/Mometasone 200-5 MCG 8.8 GM Inhaler INH SCH (06:17)
[2024-12-31 06:21] LABS: BASOPHILS PERCENT AUTO 0.1 % (0.0-1.0); EOSINOPHILS PERCENT AUTO 0.0 % (1.0-3.0); LYMPHOCYTES PERCENT AUTO 4.4 % (20.5-50.1); MONOCYTES PERCENT AUTO 2.9 % (2-8); NEUTROPHILS PERCENT AUTO 92.6 % (42.2-75.2); PLATELET COUNT,PLT 424 10^3/uL (150-450); RED BLOOD CELL COUNT 3.66 10^6/uL (4.2-5.4); WHITE BLOOD CELL COUNT,WBC 18.4 10^3/uL (5.0-10.0)
[2024-12-31 06:39] LABS: INR 1.0 (0.9-1.2)
[2024-12-31 06:47] LABS: BLOOD UREA NITROGEN,BUN 18.0 mg/dL (7-18); CARBON DIOXIDE,CO2 24.0 mmol/L (21-32); CHLORIDE,CL 109.0 mmol/L (98-107); CREATININE 0.87 mg/dL (0.55-1.02); EST CRCL DRUG DOSING (CG) 54.33 mL/min; ESTIMATED GFR 69.0 mL/min (>=60); GLUCOSE RANDOM 253.0 mg/dL (70-99); PHOSPHORUS 4.3 mg/dL (2.6-4.7); POTASSIUM,K 4.3 mmol/L (3.5-5.1); SODIUM,NA 146.0 mmol/L (136-145)
[2024-12-31] MEDS: Oxybutynin 5 MG Tab.ER PO SCH (08:47)
[2024-12-31] MEDS: Diltiazem 240 MG Cap.ER PO SCH (08:48)
[2024-12-31] MEDS: Potassium Chloride 10 MEQ Tab.ER PO SCH (08:48)
[2024-12-31] MEDS: Sodium Chloride 0.9% 10 ML Syringe FLUSH PRN (08:55)
[2024-12-31] MEDS: REMOVE NICOTINE TRDERM SCH (09:03)
[2024-12-31] MEDS: methylPREDNISolone Sodium Succinate 40 MG/1 ML SDV IVPUSH SCH (12:43)
[2024-12-31] MEDS: VANCOmycin 1.5 GM/300 ML 1.5 GM in Premix Bag 1 BAG IV SCH (19:28)
[2025-01-01 06:20] LABS: PLATELET COUNT,PLT 484 10^3/uL (150-450); RED BLOOD CELL COUNT 3.38 10^6/uL (4.2-5.4); WHITE BLOOD CELL COUNT,WBC 24.0 10^3/uL (5.0-10.0)
[2025-01-01 06:22] LABS: BASOPHILS PERCENT AUTO 0.2 % (0.0-1.0); EOSINOPHILS PERCENT AUTO 0.0 % (1.0-3.0); LYMPHOCYTES PERCENT AUTO 3.5 % (20.5-50.1); MONOCYTES PERCENT AUTO 4.8 % (2-8); NEUTROPHILS PERCENT AUTO 91.5 % (42.2-75.2)
[2025-01-01 06:41] LABS: BLOOD UREA NITROGEN,BUN 24.0 mg/dL (7-18); CARBON DIOXIDE,CO2 22.0 mmol/L (21-32); CHLORIDE,CL 110.0 mmol/L (98-107); CREATININE 1.06 mg/dL (0.55-1.02); EST CRCL DRUG DOSING (CG) 44.59 mL/min; GLUCOSE RANDOM 266.0 mg/dL (70-99); POTASSIUM,K 3.6 mmol/L (3.5-5.1); SODIUM,NA 145.0 mmol/L (136-145)
[2025-01-01 06:48] LABS: BAND PERCENT MAN 3 %; ESTIMATED GFR 55.0 mL/min (>=60); LYMPHOCYTES PERCENT MAN 4 % (20-50); MONOCYTES PERCENT MAN 3 % (2-8); SEG NEUTROPHILS PERCENT MAN 90 % (42-75)
[2025-01-01] MEDS: Acetaminophen/HYDROcodone 325-5 MG Tab PO PRN (10:08)
[2025-01-01] MEDS: Insulin Glarg,Human.Rec.Analog 100 Unit/ML 10 ML Vial SUBCUT SCH (22:26)
[2025-01-02 08:42] LABS: PLATELET COUNT,PLT 484 10^3/uL (150-450); RED BLOOD CELL COUNT 3.49 10^6/uL (4.2-5.4); WHITE BLOOD CELL COUNT,WBC 18.6 10^3/uL (5.0-10.0)
[2025-01-02 08:48] LABS: BASOPHILS PERCENT AUTO 0.2 % (0.0-1.0); EOSINOPHILS PERCENT AUTO 0.1 % (1.0-3.0); LYMPHOCYTES PERCENT AUTO 6.8 % (20.5-50.1); MONOCYTES PERCENT AUTO 7.7 % (2-8); NEUTROPHILS PERCENT AUTO 85.2 % (42.2-75.2)
[2025-01-02 08:58] LABS: BLOOD UREA NITROGEN,BUN 25.0 mg/dL (7-18); CARBON DIOXIDE,CO2 22.0 mmol/L (21-32); CHLORIDE,CL 109.0 mmol/L (98-107); CREATININE 1.0 mg/dL (0.55-1.02); EST CRCL DRUG DOSING (CG) 47.27 mL/min; ESTIMATED GFR 59.0 mL/min (>=60); GLUCOSE RANDOM 369.0 mg/dL (70-99); POTASSIUM,K 4.1 mmol/L (3.5-5.1); SODIUM,NA 142.0 mmol/L (136-145)
[2025-01-02 09:06] LABS: LYMPHOCYTES PERCENT MAN 9 % (20-50); SEG NEUTROPHILS PERCENT MAN 85 % (42-75)
[2025-01-02 09:07] LABS: MONOCYTES PERCENT MAN 6 % (2-8)
[2025-01-02 22:46] LABS: IONIZED CA@PH7.4 1.17 mmol/L (1.09-1.30); IONIZED CALCIUM 1.16 mmol/L (1.09-1.30)
== END 2025-01-02 13:00 | disposition home health service (06) | DRG 871 ==
LOC: DL.ED 13:48 → DL.MS 16:23
PROVIDERS: ADMIT Internal Medicine; ATTEND Internal Medicine
PROC: 3E03329 Introduction of Other Anti-infective into Peripheral Vein, Percutaneous Approach (ICD-10-PCS; principal; 2024-12-30)
PROC: 3E0333Z Introduction of Anti-inflammatory into Peripheral Vein, Percutaneous Approach (ICD-10-PCS; 2024-12-30)
DX: A41.9 Sepsis, unspecified organism (principal); J18.9 Pneumonia, unspecified organism; J96.01 Acute respiratory failure with hypoxia; J44.0 Chronic obstructive pulmonary disease with (acute) lower respiratory infection; J44.9 Chronic obstructive pulmonary disease, unspecified; J44.1 Chronic obstructive pulmonary disease with (acute) exacerbation; I69.354 Hemiplegia and hemiparesis following cerebral infarction affecting left non-dominant side; E10.9 Type 1 diabetes mellitus without complications; R65.20 Severe sepsis without septic shock; I48.91 Unspecified atrial fibrillation; F17.210 Nicotine dependence, cigarettes, uncomplicated; H26.9 Unspecified cataract; E78.00 Pure hypercholesterolemia, unspecified; I10 Essential (primary) hypertension; K21.9 Gastro-esophageal reflux disease without esophagitis; F41.9 Anxiety disorder, unspecified; F32.A Depression, unspecified; E66.9 Obesity, unspecified; F43.9 Reaction to severe stress, unspecified; D64.9 Anemia, unspecified; D69.6 Thrombocytopenia, unspecified; E11.65 Type 2 diabetes mellitus with hyperglycemia; E83.51 Hypocalcemia; R79.89 Other specified abnormal findings of blood chemistry; M19.90 Unspecified osteoarthritis, unspecified site; N32.81 Overactive bladder; G25.81 Restless legs syndrome; R32 Unspecified urinary incontinence; R13.10 Dysphagia, unspecified; I69.392 Facial weakness following cerebral infarction; Z68.31 Body mass index [BMI] 31.0-31.9, adult; Z88.1 Allergy status to other antibiotic agents; Z88.0 Allergy status to penicillin; Z88.8 Allergy status to other drugs, medicaments and biological substances; Z79.51 Long term (current) use of inhaled steroids; Z79.899 Other long term (current) drug therapy; Z79.82 Long term (current) use of aspirin; Z79.4 Long term (current) use of insulin; Z98.49 Cataract extraction status, unspecified eye; Z90.89 Acquired absence of other organs; Z98.890 Other specified postprocedural states; Z79.01 Long term (current) use of anticoagulants; Z71.6 Tobacco abuse counseling
CPT/HCPCS: 36415; 70450; 70496; 70498; 71045; 71250; 80053; 82607; 82746; 82977; 84484; 85025; 85610; 87040 ×2; 93005; 93010; 94762; 99284; 99285; Q9967; 80048; 80202; 81001; 82272; 82330; 82947; 83540; 83550; 83605; 83735; 84100; 87070; 87077; 87081; 87205; 87428-QW; 94640; 94664; 97161-GP; 97165-GO; 97530-GO; 97530-GP; 99223; 99232; 99233; 99239; A9270-GY; J0456; J0692; J0696; J1815-GY; J2919; J3375; J7030; J7050; J7120; J7512

== ENCOUNTER 2025-01-25 15:27 | Emergency (ER) | payer MEDICARE, MEDICAID ==
[2025-01-25 16:12] LABS: BASOPHILS PERCENT AUTO 0.3 % (0.0-1.0); EOSINOPHILS PERCENT AUTO 0.5 % (1.0-3.0); LYMPHOCYTES PERCENT AUTO 5.4 % (20.5-50.1); MONOCYTES PERCENT AUTO 7.2 % (2-8); NEUTROPHILS PERCENT AUTO 86.6 % (42.2-75.2); PLATELET COUNT,PLT 368 10^3/uL (150-450); RED BLOOD CELL COUNT 3.45 10^6/uL (4.2-5.4); WHITE BLOOD CELL COUNT,WBC 12.7 10^3/uL (5.0-10.0)
[2025-01-25 16:36] LABS: LACTIC ACID 1.0 mmol/L (0.4-2.0)
[2025-01-25 16:37] LABS: ALANINE AMINOTRANSFERASE,ALT 19.0 U/L (14-59); ASPARTATE AMNIOTRANSFERASE,AST 34.0 U/L (15-37); BILIRUBIN TOTAL 0.6 mg/dL (0.2-1.0); BLOOD UREA NITROGEN,BUN 35.0 mg/dL (7-18); CARBON DIOXIDE,CO2 26.0 mmol/L (21-32); CHLORIDE,CL 100.0 mmol/L (98-107); CREATININE 1.51 mg/dL (0.55-1.02); EST CRCL DRUG DOSING (CG) 28.97 mL/min; GLUCOSE RANDOM 233.0 mg/dL (70-99); POTASSIUM,K 3.8 mmol/L (3.5-5.1); PROTEIN TOTAL,TP 6.2 g/dL (6.4-8.2); SODIUM,NA 135.0 mmol/L (136-145)
[2025-01-25 16:45] LABS: A/G RATIO 0.94; ESTIMATED GFR 36.0 mL/min (>=60)
== END 2025-01-25 18:10 ==
LOC: DL.ED 15:27
DX: J15.9 Unspecified bacterial pneumonia (principal); I10 Essential (primary) hypertension; E11.9 Type 2 diabetes mellitus without complications; E78.00 Pure hypercholesterolemia, unspecified; I48.91 Unspecified atrial fibrillation; K21.9 Gastro-esophageal reflux disease without esophagitis; E10.9 Type 1 diabetes mellitus without complications; F17.200 Nicotine dependence, unspecified, uncomplicated; Z86.73 Personal history of transient ischemic attack (TIA), and cerebral infarction without residual deficits; Z88.0 Allergy status to penicillin; Z88.8 Allergy status to other drugs, medicaments and biological substances; Z88.5 Allergy status to narcotic agent; Z79.899 Other long term (current) drug therapy; Z79.84 Long term (current) use of oral hypoglycemic drugs; Z79.01 Long term (current) use of anticoagulants; Z79.82 Long term (current) use of aspirin
CPT/HCPCS: 36415; 71045; 80053; 82947; 83605; 83735; 84484; 85025; 87040; 87428; 93005; 94640; 96365; 96375; 99285; A9270; J0456; J0696; J7050; 93010

== ENCOUNTER 2025-01-29 09:45 | Inpatient (IN) | payer MEDICARE, MEDICAID ==
[2025-01-29] MEDS ORDERED: 50% Dextrose in Water 50 ML Syringe IVPUSH PRN (15:48)
[2025-01-29] MEDS: Acetaminophen/HYDROcodone 325-10 MG Tab PO PRN (16:18)
[2025-01-29] MEDS: Fluticasone NASAL Spray 16 GM Bottle NASBOTH SCH (20:06)
[2025-01-29] MEDS: Insulin Glarg,Human.Rec.Analog 100 Unit/ML 10 ML Vial SUBCUT SCH (20:07)
[2025-01-30 06:28] LABS: BASOPHILS PERCENT AUTO 0.5 % (0.0-1.0); EOSINOPHILS PERCENT AUTO 3.8 % (1.0-3.0); LYMPHOCYTES PERCENT AUTO 22.9 % (20.5-50.1); MONOCYTES PERCENT AUTO 10.0 % (2-8); NEUTROPHILS PERCENT AUTO 62.8 % (42.2-75.2); PLATELET COUNT,PLT 431 10^3/uL (150-450); RED BLOOD CELL COUNT 3.38 10^6/uL (4.2-5.4); WHITE BLOOD CELL COUNT,WBC 8.7 10^3/uL (5.0-10.0)
[2025-01-30 06:45] LABS: BLOOD UREA NITROGEN,BUN 13 mg/dL (7-18); CARBON DIOXIDE,CO2 27 mmol/L (21-32); CHLORIDE,CL 110 mmol/L (98-107); CREATININE 0.88 mg/dL (0.55-1.02); GLUCOSE RANDOM 129 mg/dL (70-99); PHOSPHORUS 3.4 mg/dL (2.6-4.7); POTASSIUM,K 4.3 mmol/L (3.5-5.1); SODIUM,NA 145 mmol/L (136-145)
[2025-01-30 06:46] LABS: ESTIMATED GFR 68 mL/min (>=60)
[2025-01-30] MEDS: Potassium Chloride 10 MEQ Tab.ER PO SCH (08:19)
[2025-01-30] MEDS: Diltiazem 240 MG Cap.ER PO SCH (08:19)
[2025-01-31 06:07] LABS: BASOPHILS PERCENT AUTO 0.4 % (0.0-1.0); EOSINOPHILS PERCENT AUTO 2.5 % (1.0-3.0); LYMPHOCYTES PERCENT AUTO 22.0 % (20.5-50.1); MONOCYTES PERCENT AUTO 8.9 % (2-8); NEUTROPHILS PERCENT AUTO 66.2 % (42.2-75.2); PLATELET COUNT,PLT 440 10^3/uL (150-450); RED BLOOD CELL COUNT 3.38 10^6/uL (4.2-5.4); WHITE BLOOD CELL COUNT,WBC 10.5 10^3/uL (5.0-10.0)
[2025-02-02 07:38] LABS: APPEARANCE,URINE CLEAR (CLEAR); GLUCOSE,URINE 500 (NEGATIVE); OCCULT BLOOD,URINE TRACE-LYSED (NEGATIVE)
[2025-02-02 08:26] LABS: BASOPHILS PERCENT AUTO 0.4 % (0.0-1.0); EOSINOPHILS PERCENT AUTO 1.1 % (1.0-3.0); LYMPHOCYTES PERCENT AUTO 14.7 % (20.5-50.1); MONOCYTES PERCENT AUTO 6.0 % (2-8); NEUTROPHILS PERCENT AUTO 77.8 % (42.2-75.2); PLATELET COUNT,PLT 507 10^3/uL (150-450); RED BLOOD CELL COUNT 3.56 10^6/uL (4.2-5.4); WHITE BLOOD CELL COUNT,WBC 14.1 10^3/uL (5.0-10.0)
[2025-02-02 08:28] LABS: EPITHELIAL CELLS,URINE FEW /HPF (NOT SEEN)
[2025-02-04 09:01] LABS: PLATELET COUNT,PLT 481.0 10^3/uL (150-450); RED BLOOD CELL COUNT 3.58 10^6/uL (4.2-5.4); WHITE BLOOD CELL COUNT,WBC 12.9 10^3/uL (5.0-10.0)
== END 2025-02-06 10:35 | disposition home health service (06) | DRG 947 ==
LOC: DL.MS 14:12
PROVIDERS: ADMIT Internal Medicine; ATTEND Internal Medicine
DX: R53.1 Weakness (principal); A41.9 Sepsis, unspecified organism; J18.9 Pneumonia, unspecified organism; D84.9 Immunodeficiency, unspecified; N17.9 Acute kidney failure, unspecified; R53.81 Other malaise; E78.00 Pure hypercholesterolemia, unspecified; I48.91 Unspecified atrial fibrillation; H26.9 Unspecified cataract; I10 Essential (primary) hypertension; F17.210 Nicotine dependence, cigarettes, uncomplicated; E86.0 Dehydration; D50.9 Iron deficiency anemia, unspecified; R13.10 Dysphagia, unspecified; N32.81 Overactive bladder; F39 Unspecified mood [affective] disorder; M19.90 Unspecified osteoarthritis, unspecified site; K21.9 Gastro-esophageal reflux disease without esophagitis; J44.9 Chronic obstructive pulmonary disease, unspecified; F41.9 Anxiety disorder, unspecified; F32.A Depression, unspecified; E66.9 Obesity, unspecified; Z90.89 Acquired absence of other organs; Z88.0 Allergy status to penicillin; Z88.1 Allergy status to other antibiotic agents; Z88.8 Allergy status to other drugs, medicaments and biological substances; Z79.899 Other long term (current) drug therapy; Z79.51 Long term (current) use of inhaled steroids; Z79.01 Long term (current) use of anticoagulants; Z79.82 Long term (current) use of aspirin; Z79.891 Long term (current) use of opiate analgesic; Z79.1 Long term (current) use of non-steroidal anti-inflammatories (NSAID); Z98.49 Cataract extraction status, unspecified eye; Z98.890 Other specified postprocedural states; Z86.73 Personal history of transient ischemic attack (TIA), and cerebral infarction without residual deficits
CPT/HCPCS: 36415; 71045; 80048; 81001; 82947; 83735; 83880; 84100; 85025; 85027; 94664; 97110-GO; 97110-GP; 97116-GP; 97161-GP; 97165-GO; 97530-GO; 97530-GP; 99305; 99309; 99316; A9270-GY; J1815-GY